=== PATIENT | female | born 1955 | race Caucasian/White ===

== ENCOUNTER 2016-11-09 12:55 | Emergency (ER) | payer MEDICARE, OTHER ==
[~2016-11-09 12:55] MED LIST: BIOT10TA PO; CETI5SOL PO; CLON1 PO; CRANCAP10 PO; LEFL20 PO; PREM0.45 PO; PRIN5TAB PO; PRIS50TA PO; SYNT88TA PO; VITA-13 PO; VITA500T49 PO
[2016-11-09 13:02] VITALS: BP 137/76; PULSE 84; RESP 16; TEMP 97.7; O2SAT 98
[2016-11-09] MEDS ORDERED: CRANCAP2 PO (13:05)
[2016-11-09] MEDS ORDERED: LISI10TA3 PO (13:05)
[2016-11-09] MEDS ORDERED: ALPR1TAB3 PO (13:05)
[2016-11-09] MEDS ORDERED: LEVO88TA2 PO (13:05)
[2016-11-09] MEDS ORDERED: CETI10 PO (13:05)
[2016-11-09] MEDS ORDERED: LEFL1TAB3 PO (13:05)
[2016-11-09] MEDS ORDERED: VORT1TAB2 PO (13:05)
[2016-11-09] MEDS ORDERED: SODIUM CHLOR 0.9% 1000 ML INJ 1,000 ML IV SCH (13:30)
[2016-11-09] MEDS ORDERED: METO25TA3 PO (13:30)
--- NOTE | 2016-11-09 13:30 | PD ---
HPI Chief Complaint: Syncope/Near-Syncope Time Seen by Provider: 13:00 Travel History International Travel<30 days: No Contact w/Intl Traveler<30days: No Traveled to known affect area: No History of Present Illness HPI 61 year-old woman presents to the emergency department complaining of feeling generally weak for the past couple weeks, as well as feeling episodes of fainting lightheadedness. She states she had one episode yesterday while she was shopping in flexion sit down. She had a second episode today while cutting her boyfriend's hair. She's had similar episodes in the past. She has a pacemaker for bradycardia. She states last week she had a pacer check she was told that she was having episodes of rapid heart rate up into the 200s. She did feel like her heart rate was elevated during these episodes. No shortness of breath. No chest pain. Review systems is positive for some loose stools recently. History Past Medical History Narrative Medical Hypertension Bradycardia, status post pacer, [employer] scientific Anxiety/depression mitral valve prolapse history of Kit's thyroiditis History of Elicia-Stover virus in the Menopausal: Yes : 2 Para: 2 Social History Alcohol Use: No Tobacco Use: No Allergies-Medications (Allergen,Severity, Reaction): Coded Allergies: Cymbalta (Verified Adverse Reaction, Severe, insomnia/celina, 11/09/16) Reported Meds & Prescriptions Reported Meds & Active Scripts Active Metoprolol Tartrate 25 Mg Tab 25 Mg PO BID Reported Lisinopril 10 Mg Tab 10 Mg PO DAILY Leflunomide 20 Mg Tab 20 Mg PO DAILY Cetirizine (Cetirizine HCl) 10 Mg Tab 10 Mg PO DAILY Cranberry Urinary Comfort (Vitamins C & E) 1 Cap 1 Cap PO DAILY Alprazolam 1 Mg Tab 1 Mg PO Q6H PRN Trintellix (Vortioxetine) 10 Mg Tab 10 Mg PO DAILY Levothyroxine (Levothyroxine Sodium) 88 Mcg Tab 88 Mcg PO DAILY Review of Systems Except as stated in HPI: all other systems reviewed are Neg Physical Exam Narrative GENERAL: Well-appearing 61 year-old woman, no acute distress. SKIN: Focused skin assessment warm/dry. HEAD: Atraumatic. Normocephalic. CARDIOVASCULAR: Regular rate and rhythm. No murmur appreciated. RESPIRATORY: No accessory muscle use. Clear to auscultation. Breath sounds equal bilaterally. GASTROINTESTINAL: Abdomen soft, non-tender, nondistended. Hepatic and splenic margins not palpable. MUSCULOSKELETAL: No obvious deformities. No clubbing. No cyanosis. No edema. NEUROLOGICAL: Awake and alert. No obvious cranial nerve deficits. Motor grossly within normal limits. Normal speech. PSYCHIATRIC: Little bit anxious. Somatically preoccupied. Data Data Last Documented VS Vital Signs Date Time Temp Pulse Resp B/P Pulse Ox O2 Delivery O2 Flow Rate FiO2 11/09/16 13:04 84 16 98 11/09/16 13:02 97.7 137/76 Orders Complete Blood Count With Diff (11/09/16 13:16) Comprehensive Metabolic Panel (11/09/16 13:16) Chest, Single Ap (11/09/16 ) Urinalysis - C+S If Indicated (11/09/16 13:16) Sodium Chlor 0.9% 1000 Ml Inj (Ns 1000 M (11/09/16 13:30) Iv Access Insert/Monitor (11/09/16 13:16) Labs Laboratory Tests Test 11/09/16 13:07 White Blood Count 3.7 TH/MM3 Red Blood Count 4.34 MIL/MM3 Hemoglobin 13.9 GM/DL Hematocrit 42.6 % Mean Corpuscular Volume 98.0 FL Mean Corpuscular Hemoglobin 32.0 PG Mean Corpuscular Hemoglobin 32.6 % Concent Red Cell Distribution Width 12.6 % Platelet Count 194 TH/MM3 Mean Platelet Volume 7.1 FL Neutrophils (%) (Auto) 28.2 % Lymphocytes (%) (Auto) 45.0 % Monocytes (%) (Auto) 11.1 % Eosinophils (%) (Auto) 14.6 % Basophils (%) (Auto) 1.1 % Neutrophils # (Auto) 1.0 TH/MM3 Lymphocytes # (Auto) 1.8 TH/MM3 Monocytes # (Auto) 0.4 TH/MM3 Eosinophils # (Auto) 0.5 TH/MM3 Basophils # (Auto) 0.0 TH/MM3 CBC Comment AUTO DIFF Sodium Level 139 MEQ/L Potassium Level 3.7 MEQ/L Chloride Level 103 MEQ/L Carbon Dioxide Level 26.8 MEQ/L Anion Gap 9 MEQ/L Blood Urea Nitrogen 14 MG/DL Creatinine 1.00 MG/DL Estimat Glomerular Filtration 57 ML/MIN Rate Random Glucose 137 MG/DL Calcium Level 9.1 MG/DL Total Bilirubin 0.6 MG/DL Aspartate Amino Transf 21 U/L (AST/SGOT) Alanine Aminotransferase 18 U/L (ALT/SGPT) Alkaline Phosphatase 66 U/L Total Protein 7.3 GM/DL Albumin 3.6 GM/DL [facility] Medical Decision Making Medical Screen Exam Complete: Yes Emergency Medical Condition: Yes Interpretation(s) LABS: CBC unremarkable. CMP unremarkable. Chest x-ray negative Differential Diagnosis Arrhythmia/SVT, dehydration, anemia, anxiety, weakness, other Narrative Course Medical decision making 61 year-old woman with intermittent episodes of lightheadedness and faint near syncopal feelings. She has some palpitations at a time. She has known episodes of SVT. I spoke with Dr. Patterson, and on her recent pacer interpretation she was having runs of SVT lasting 30 seconds or so. I think this is likely this was for symptoms. We'll check electrolytes, x-ray. These look okay, will start her on some low-dose metoprolol, stopped lisinopril. Diagnosis Primary Impression: SVT (supraventricular tachycardia) Additional Instructions: Take metoprolol as prescribed. Stop lisinopril. Follow-up with Dr. Patterson next week. Return to the emergency department for any new or worsening symptoms. Med/Other Pt SpecificInfo: Prescription(s) given Scripts Metoprolol Tartrate 25 Mg Tab25 Mg PO BID #60 TAB Ref 0 Prov:Tobi Edmondson MD 11/09/16 Disposition: 01 DISCHARGE HOME Condition: Stable Tobi Edmondson MD Nov 09, 2016 13:30
--- NOTE | 2016-11-09 13:41 | RADHPO ---
EXAM DATE/TIME: 11/09/2016 13:23 [facility] COMPARISON: CHEST SINGLE AP, October 01, 2014, 11:39. INDICATIONS : Short of breath MEDICAL HISTORY : None. SURGICAL HISTORY : Pacemaker. ENCOUNTER: Initial ACUITY: 1 day PAIN SCORE: 0/10 LOCATION: Bilateral chest FINDINGS: There is a stable 2-lead pacemaker in place. Lungs are hyperaerated but are otherwise clear. Cardiome dial contours are within normal limits. Bony thorax is intact. CONCLUSION: 1. No acute cardiopulmonary disease. Juno Rodas MD on November 09, 2016 at 13:38 Board Certified Radiologist. This report was verified electronically.
[2016-11-09 13:51] LABS: CHLORIDE 103 MEQ/L (98-107); POTASSIUM 3.7 MEQ/L (3.5-5.1); SODIUM (NA) 139 MEQ/L (136-145)
[2016-11-09 13:52] LABS: BASOPHIL % 1.1 % (0.0-2.0); EOSINOPHIL # 0.5 TH/MM3 (0-0.4); EOSINOPHIL % 14.6 % (0.0-4.0); HEMATOCRIT 42.6 % (35.0-46.0); LYMPHOCYTE # 1.8 TH/MM3 (1.0-4.8); MEAN CORPUSCULAR HGB CONC 32.6 % (32.0-36.0); MONO % 11.1 % (0.0-8.0); NEUT % 28.2 % (16.0-70.0); PLATELET COUNT 194 TH/MM3 (150-450); RED BLOOD COUNT 4.34 MIL/MM3 (4.00-5.30); RED CELL DISTRIBUTION WIDTH 12.6 % (11.6-17.2); WHITE BLOOD COUNT 3.7 TH/MM3 (4.0-11.0)
[2016-11-09 13:55] LABS: ANION GAP 9 MEQ/L (5-15); BICARBONATE 26.8 MEQ/L (21.0-32.0); BLOOD UREA NITROGEN 14 MG/DL (7-18)
[2016-11-09 13:56] LABS: HEMO FLAGS AUTO DIFF
[2016-11-09 13:58] LABS: ALT (GPT) 18 U/L (10-53); AST (GOT) 21 U/L (15-37); GLOMERULAR FILTRATION RATE 57 ML/MIN (>89)
[2016-11-09 14:00] LABS: TOTAL BILIRUBIN ADULT 0.6 MG/DL (0.2-1.0)
[2016-11-09 14:01] LABS: ALKALINE PHOSPHATASE 66 U/L (45-117)
[2016-11-09 14:23] VITALS: BP 114/68
[2016-11-09 14:35] LABS: SCAN/DIFF AUTO DIFF CONFIRMED
--- NOTE | 2016-11-11 10:12 | EKG ---
Date Performed: 11/09/2016 Time Performed: 12:53:34 PTAGE: 61 years EKG: Sinus rhythm rSr'(V1) - probable normal variant Generalized low QRS voltages Borderline ECG PREVIOUS TRACING : 12/26/2015 13.45 DOCTOR: Tobi Hwang Interpretating Date/Time 11/11/2016 09:55:10
== END 2016-11-09 14:34 | disposition home or self-care (01) ==
LOC: PHED 12:55
DX: I47.1 Supraventricular tachycardia (principal); R42 Dizziness and giddiness; I10 Essential (primary) hypertension
CPT/HCPCS: 71010; 80053; 85025; 93005; 96360; 99284; J7030

== ENCOUNTER 2016-11-15 14:30 | Emergency (ER) | payer MEDICARE, OTHER ==
[~2016-11-15] VITALS: Ht 170.2 cm; Wt 59.0 kg
[~2016-11-15 14:30] MED LIST changes: +ALPR1TAB3 PO; -BIOT10TA PO; +CETI10 PO; -CETI5SOL PO; -CLON1 PO; -CRANCAP10 PO; +CRANCAP2 PO; +LEFL1TAB3 PO; -LEFL20 PO; +LEVO88TA2 PO; +LISI10TA3 PO; +METO25TA3 PO; -PREM0.45 PO; -PRIN5TAB PO; -PRIS50TA PO; -SYNT88TA PO; -VITA-13 PO; -VITA500T49 PO; +VORT1TAB2 PO
[2016-11-15 15:00] VITALS: BP 115/68; PULSE 64; RESP 18; O2SAT 95
[2016-11-15 15:04] VITALS: BP 115/68; PULSE 59; RESP 18; TEMP 98.5; O2SAT 97
[2016-11-15 15:09] VITALS: BP 115/68; PULSE 60; RESP 18; TEMP 98.5; O2SAT 97
[2016-11-15] MEDS ORDERED: SODIUM CHLORIDE 0.9% FLUSH 10 ML FLUSH IVF PRN (16:00)
[2016-11-15 16:24] LABS: AUTOMATED NEUTROPHIL # 5.1 TH/MM3 (1.8-7.7); BASOPHIL % 0.6 % (0.0-2.0); EOSINOPHIL # 0.3 TH/MM3 (0-0.4); EOSINOPHIL % 4.1 % (0.0-4.0); HEMATOCRIT 40.9 % (35.0-46.0); LYMPH % 15.3 % (9.0-44.0); LYMPHOCYTE # 1.1 TH/MM3 (1.0-4.8); MEAN CELL VOLUME 98.8 FL (80.0-100.0); MEAN CORPUSCULAR HEMOGLOBIN 32.6 PG (27.0-34.0); MONO % 6.6 % (0.0-8.0); NEUT % 73.4 % (16.0-70.0); PLATELET COUNT 191 TH/MM3 (150-450); RED BLOOD COUNT 4.14 MIL/MM3 (4.00-5.30); RED CELL DISTRIBUTION WIDTH 12.5 % (11.6-17.2); WHITE BLOOD COUNT 6.9 TH/MM3 (4.0-11.0)
[2016-11-15 16:47] VITALS: BP 124/69; PULSE 60; RESP 18; O2SAT 96
[2016-11-15 16:47] LABS: HEMO FLAGS AUTO DIFF
[2016-11-15 16:50] LABS: ALT (GPT) 20 U/L (10-53); ANION GAP 8 MEQ/L (5-15); AST (GOT) 27 U/L (15-37); BICARBONATE 26.9 MEQ/L (21.0-32.0); BLOOD UREA NITROGEN 7 MG/DL (7-18); CHLORIDE 109 MEQ/L (98-107); GLOMERULAR FILTRATION RATE 66 ML/MIN (>89); MAGNESIUM 1.8 MG/DL (1.5-2.5); POTASSIUM 3.9 MEQ/L (3.5-5.1); SODIUM (NA) 144 MEQ/L (136-145)
[2016-11-15 16:56] LABS: ALKALINE PHOSPHATASE 53 U/L (45-117); TOTAL BILIRUBIN ADULT 0.2 MG/DL (0.2-1.0)
[2016-11-15 17:06] LABS: CREATINE KINASE 61 U/L (26-192)
--- NOTE | 2016-11-15 17:09 | PD ---
HPI Chief Complaint: Syncope/Near-Syncope Time Seen by Provider: 15:04 Travel History International Travel<30 days: No Contact w/Intl Traveler<30days: No Traveled to known affect area: No History of Present Illness HPI Patient is a 61-year-old female presents emergency department for evaluation after syncopal episode. Patient states that she was shopping at [employer] when suddenly she felt very dizzy and extension and she was on the ground. She is coming by her states the patient does have a history of heavy drinking in the past and wonders if her electrolytes are imbalanced. The patient does have a history of pacemaker placed for an irregular heartbeat, she has had some SVT episodes measured by the pacemaker since in place. Not a defibrillator. She states she is followed by Dr. Patterson and has an appointment tomorrow. She denies any headache abdominal pain neck pain back pain or extremity pain. Patient denies any chest pain shortness of breath abdominal pain nausea vomiting or diarrhea before during or after event. On arrival the patient states she feels well and has no complaints and is no longer feeling like she is dizzy her going to pass out. EMS did report that the patient did have low blood pressure on scene a normal blood sugar. PFSH Past Medical History Arthritis: Yes Blood Disorders: No Anxiety: Yes Depression: Yes Heart Rhythm Problems: Yes (Mitral valve prolapse) Cancer: No High Cholesterol: No Chest Pain: No Congestive Heart Failure: No Diabetes: No Diminished Hearing: No Endocrine: Yes Gastrointestinal Disorders: No Genitourinary: Yes (Frequent UTI's) Hypertension: No Immune Disorder: Yes (Kit's, Elicia-barre) Implanted Vascular Access Dvce: Yes Immunizations Current: No Thyroid Disease: Yes (Kit's) ?: Not Menopausal: Yes : 2 Para: 2 Past Surgical History Appendectomy: Yes (2000) Body Medical Devices: Pacemaker Cardiac Surgery: Yes (Pacemaker) Cholecystectomy: Yes (2002) Genitourinary Surgery: Yes (Bladder tuck) Hysterectomy: Yes (Partial) Pacemaker: Yes Tonsillectomy: Yes (and adenoids) Other Surgery: Yes (Breast aug) Social History Alcohol Use: No Tobacco Use: No Substance Use: No Allergies-Medications (Allergen,Severity, Reaction): Coded Allergies: Cymbalta (Verified Adverse Reaction, Severe, insomnia/celina, 11/15/16) Reported Meds & Prescriptions Reported Meds & Active Scripts Active Metoprolol Tartrate 25 Mg Tab 25 Mg PO BID Reported Lisinopril 10 Mg Tab 10 Mg PO DAILY Leflunomide 20 Mg Tab 20 Mg PO DAILY Cetirizine (Cetirizine HCl) 10 Mg Tab 10 Mg PO DAILY Cranberry Urinary Comfort (Vitamins C & E) 1 Cap 1 Cap PO DAILY Alprazolam 1 Mg Tab 1 Mg PO Q6H PRN Trintellix (Vortioxetine) 10 Mg Tab 10 Mg PO DAILY Levothyroxine (Levothyroxine Sodium) 88 Mcg Tab 88 Mcg PO DAILY Review of Systems Except as stated in HPI: all other systems reviewed are Neg Physical Exam Narrative GENERAL: Well-developed well-nourished, quite pleasant female in no apparent distress. SKIN: Focused skin assessment warm/dry. HEAD: Atraumatic. Normocephalic. EYES: Pupils equal and round. No scleral icterus. No injection or drainage. ENT: No nasal bleeding or discharge. Mucous membranes pink and moist. NECK: Trachea midline. No JVD. CARDIOVASCULAR: Regular rate and rhythm. No murmur appreciated. 2+ bilateral equal pulses in all 4 extremity's. RESPIRATORY: No accessory muscle use. Clear to auscultation. Breath sounds equal bilaterally. GASTROINTESTINAL: Abdomen soft, non-tender, nondistended. Hepatic and splenic margins not palpable. MUSCULOSKELETAL: No obvious deformities. No clubbing. No cyanosis. No edema. NEUROLOGICAL: Awake and alert. No obvious cranial nerve deficits. Motor grossly within normal limits. Normal speech. PSYCHIATRIC: Appropriate mood and affect; insight and judgment normal. Data Data Last Documented VS Vital Signs Date Time Temp Pulse Resp B/P Pulse Ox O2 Delivery O2 Flow Rate FiO2 11/15/16 18:07 60 18 113/68 98 11/15/16 16:47 Room Air 11/15/16 15:09 98.5 Orders Electrocardiogram (11/15/16 15:51) Ckmb (Isoenzyme) Profile (11/15/16 15:51) Complete Blood Count With Diff (11/15/16 15:51) Comprehensive Metabolic Panel (11/15/16 15:51) Magnesium (Mg) (11/15/16 15:51) Prothrombin Time / Inr (Pt) (11/15/16 15:51) Act Partial Throm Time (Ptt) (11/15/16 15:51) Troponin I (11/15/16 15:51) Chest, Single Ap (11/15/16 15:51) Ecg Monitoring (11/15/16 15:51) Iv Access Insert/Monitor (11/15/16 15:51) Oximetry (11/15/16 15:51) Oxygen Administration (11/15/16 15:51) Sodium Chloride 0.9% Flush (Ns Flush) (11/15/16 16:00) Labs Laboratory Tests Test 11/15/16 15:55 White Blood Count 6.9 TH/MM3 Red Blood Count 4.14 MIL/MM3 Hemoglobin 13.5 GM/DL Hematocrit 40.9 % Mean Corpuscular Volume 98.8 FL Mean Corpuscular Hemoglobin 32.6 PG Mean Corpuscular Hemoglobin 33.0 % Concent Red Cell Distribution Width 12.5 % Platelet Count 191 TH/MM3 Mean Platelet Volume 7.5 FL Neutrophils (%) (Auto) 73.4 % Lymphocytes (%) (Auto) 15.3 % Monocytes (%) (Auto) 6.6 % Eosinophils (%) (Auto) 4.1 % Basophils (%) (Auto) 0.6 % Neutrophils # (Auto) 5.1 TH/MM3 Lymphocytes # (Auto) 1.1 TH/MM3 Monocytes # (Auto) 0.5 TH/MM3 Eosinophils # (Auto) 0.3 TH/MM3 Basophils # (Auto) 0.0 TH/MM3 CBC Comment AUTO DIFF Differential Comment AUTO DIFF CONFIRMED Prothrombin Time 11.9 SEC Prothromb Time International 1.1 RATIO Ratio Activated Partial 20.8 SEC Thromboplast Time Sodium Level 144 MEQ/L Potassium Level 3.9 MEQ/L Chloride Level 109 MEQ/L Carbon Dioxide Level 26.9 MEQ/L Anion Gap 8 MEQ/L Blood Urea Nitrogen 7 MG/DL Creatinine 0.88 MG/DL Estimat Glomerular Filtration 66 ML/MIN Rate Random Glucose 70 MG/DL Calcium Level 8.5 MG/DL Magnesium Level 1.8 MG/DL Total Bilirubin 0.2 MG/DL Aspartate Amino Transf 27 U/L (AST/SGOT) Alanine Aminotransferase 20 U/L (ALT/SGPT) Alkaline Phosphatase 53 U/L Total Creatine Kinase 61 U/L Troponin I LESS THAN 0.02 NG/ML Total Protein 6.9 GM/DL Albumin 3.4 GM/DL MDM Medical Decision Making Medical Screen Exam Complete: Yes Emergency Medical Condition: Yes Interpretation(s) EKG shows electronic atrial pacemaker, no concerning ST segment changes, normal axis normal R-wave progression. Low QRS voltage throughout all leads nonspecific finding. This is nonspecific EKG. Differential Diagnosis Syncope, cardiogenic syncope, arrhythmia, ACS seems unlikely, SC,. Narrative Course Head injury is excluded by Bulgarian CT head rules, neck is excluded by Nexus criteria. Patient's EKG is reassuring. Patient's pacemaker was interrogated and while the patient has had some tachyarrhythmias in the past she's not had any in the immediate past and certainly none while the event happened today. Troponin negative, chest x-ray negative, electrolytes within normal limits. Discussed with the patient could consider observation status but she would rather follow up with her manager payer tomorrow. Sincerely has an appointment at think this is a reasonable course of action. She stable for discharge at this time. Discussed return to ED criteria. Diagnosis Primary Impression: Syncope Qualified Code: R55 - Syncope, unspecified syncope type Additional Instructions: Follow-up with your physicians as scheduled tomorrow. Disposition: 01 DISCHARGE HOME Condition: Stable Cipriano Garza MD Nov 15, 2016 17:09
[2016-11-15 17:11] LABS: APTT (PATIENT) 20.8 SEC (24.3-30.1); INTERNATIONAL NORMALIZED RATIO 1.1 RATIO; PROTHROMBIN TIME - PATIENT 11.9 SEC (9.8-11.6)
--- NOTE | 2016-11-15 17:17 | RADRPT ---
EXAM DATE/TIME: 11/15/2016 16:15 [facility] COMPARISON: CHEST SINGLE AP, November 09, 2016, 13:23. INDICATIONS : [facility] MED[facility] HISTORY : high blood pressure SURGICAL HISTORY : Pacemaker. ENCOUNTER: Initial ACUITY: 1 day PAIN SCORE: 0/10 LOCATION: Bilateral chest FINDINGS: Dual-lead pacemaker in stable position. Lungs are clear. Cardiomediastinal contours are within normal limits. Remainder of exam is unchanged. CONCLUSION: 1. No acute cardiopulmonary disease. Juno Rodas MD on November 15, 2016 at 17:13 Board Certified Radiologist. This report was verified electronically.
[2016-11-15 18:00] LABS: SCAN/DIFF AUTO DIFF CONFIRMED
[2016-11-15 18:07] VITALS: BP 113/68
--- NOTE | 2016-11-16 22:48 | EKG ---
Date Performed: 11/15/2016 Time Performed: 15:04:37 PTAGE: 61 years EKG: ELECTRONIC ATRIAL PACEMAKER LOW QRS VOLTAGE ABNORMAL ECG PREVIOUS TRACING : 11/09/2016 12.53 DOCTOR: Jose Manuel Naranjo Interpretating Date/Time 11/16/2016 22:46:05
== END 2016-11-15 18:10 | disposition home or self-care (01) ==
LOC: NEPC 14:30
DX: R55 Syncope and collapse (principal); I34.1 Nonrheumatic mitral (valve) prolapse; E06.3 Autoimmune thyroiditis; Z95.0 Presence of cardiac pacemaker; Z87.440 Personal history of urinary (tract) infections
CPT/HCPCS: 71010; 80053; 82550; 83735; 84484; 85025; 85610; 85730; 93005; 99285

== ENCOUNTER 2017-05-14 17:19 | Emergency (ER) | payer MEDICARE, OTHER ==
[2017-05-14 17:26] VITALS: BP 146/82; PULSE 69; RESP 20; TEMP 98.5; O2SAT 95
[2017-05-14] MEDS ORDERED: SODIUM CHLORIDE 0.9% FLUSH 10 ML FLUSH IV FLUSH PRN (17:45)
[2017-05-14] MEDS ORDERED: TETANUS/DIPHTHERIA TOXOID ADULT 0.5 ML VIAL IM ONE (17:45)
[2017-05-14] MEDS ORDERED: KETOROLAC TROMETHAMINE 30 MG/ML (IVP) VIAL IV PUSH ONE (17:45)
--- NOTE | 2017-05-14 17:49 | PD ---
HPI Chief Complaint: Fall Time Seen by Provider: 17:38 Travel History International Travel<30 days: No Contact w/Intl Traveler<30days: No Traveled to known affect area: No History of Present Illness HPI 61-year-old female here with her significant other for evaluation of right arm and forearm pain after a mechanical fall in the bathroom yesterday while intoxicated. The patient admits to drinking wine today as well. She tells me she does not drink daily, however her significant other tells me that she does. She is unsure if she hit her head. She denies loss of consciousness. She denies neck or back pain. She does have history of sciatica with shooting pain down her left leg which is not new. She denies pain anywhere else. Pain is moderate to severe, constant, worse with palpation and movements. She has not taken anything for the pain. PFSH Past Medical History Arthritis: Yes Blood Disorders: No Anxiety: Yes Depression: Yes Heart Rhythm Problems: Yes (Mitral valve prolapse) Cancer: No High Cholesterol: No Chest Pain: No Congestive Heart Failure: No Diabetes: No Diminished Hearing: No Endocrine: Yes Gastrointestinal Disorders: No Genitourinary: Yes (Frequent UTI's) Hypertension: No Immune Disorder: Yes (Kit's, Elicia-barre) Implanted Vascular Access Dvce: Yes Immunizations Current: No Thyroid Disease: Yes (Kit's) Menopausal: Yes : 2 Para: 2 Past Surgical History Appendectomy: Yes (2000) Body Medical Devices: Pacemaker Cardiac Surgery: Yes (Pacemaker) Cholecystectomy: Yes (2002) Genitourinary Surgery: Yes (Bladder tuck) Hysterectomy: Yes (PARTIAL) Pacemaker: Yes Tonsillectomy: Yes (and adenoids) Other Surgery: Yes (Breast aug.) Social History Alcohol Use: No Tobacco Use: No Substance Use: No Allergies-Medications (Allergen,Severity, Reaction): Coded Allergies: duloxetine (Verified Adverse Reaction, Severe, insomnia/celina, 05/14/17) Reported Meds & Prescriptions Reported Meds & Active Scripts Active Metoprolol Tartrate 25 Mg Tab 25 Mg PO BID Reported Lisinopril 10 Mg Tab 10 Mg PO DAILY Leflunomide 20 Mg Tab 20 Mg PO DAILY Cetirizine (Cetirizine HCl) 10 Mg Tab 10 Mg PO DAILY Cranberry Urinary Comfort (Vitamins C & E) 1 Cap 1 Cap PO DAILY Alprazolam 1 Mg Tab 1 Mg PO Q6H PRN Trintellix (Vortioxetine) 10 Mg Tab 10 Mg PO DAILY Levothyroxine (Levothyroxine Sodium) 88 Mcg Tab 88 Mcg PO DAILY Review of Systems Except as stated in HPI: all other systems reviewed are Neg Physical Exam Narrative GENERAL: Well-developed, well-nourished, awake, alert, no apparent distress. SKIN: Focused skin assessment warm/dry. Right proximal/posterior/lateral forearm with significant ecchymosis and moderate edema with small overlying/ superficial abrasion. There is also ecchymosis to the right lateral arm. Left distal forearm with some mild ecchymosis as well. HEAD: Atraumatic. Normocephalic. EYES: Pupils equal and round. No scleral icterus. No injection or drainage. ENT: No nasal bleeding or discharge. Mucous membranes pink and moist. NECK: Trachea midline. No JVD. No midline cervical spine step-off or tenderness. CARDIOVASCULAR: Regular rate and rhythm. Bilateral distal radial pulses are brisk and equal. RESPIRATORY: No accessory muscle use. Clear to auscultation. Breath sounds equal bilaterally. GASTROINTESTINAL: Abdomen soft, non-tender, nondistended. MUSCULOSKELETAL: Skin exam as above. Normal range of motion in all joints in the right upper extremity as well as all joints in general. Aside from swelling to the proximal right/lateral/posterior forearm, there is no other areas of edema. No obvious bony deformities. NEUROLOGICAL: Awake and alert. No obvious cranial nerve deficits. Motor grossly within normal limits. Normal speech. PSYCHIATRIC: Appropriate mood and affect; insight and judgment normal. Data Data Last Documented VS Vital Signs Date Time Temp Pulse Resp B/P (MAP) Pulse Ox O2 Delivery O2 Flow Rate FiO2 05/14/17 19:02 66 18 123/69 (87) 96 Room Air 05/14/17 17:26 98.5 Orders Orders Complete Blood Count With Diff (05/14/17 17:43) Comprehensive Metabolic Panel (05/14/17:43) Prothrombin Time / Inr (Pt) (05/14/17 17:43) Act Partial Throm Time (Ptt) (05/14/17 17:43) Iv Access Insert/Monitor (05/14/17 17:43) Ecg Monitoring (05/14/17:43) Oximetry (12/12/17 17:43) Sodium Chloride 0.9% Flush (Ns Flush) (05/14/17 17:45) Ketorolac Inj (Toradol Inj) (05/14/17 17:45) Tetanus/Diphtheria Tox Adult (Tetanus/Di (05/14/17 17:45) Ct Brain W/O Iv Contrast(Rout) (05/14/17 ) Ct Cerv Spine W/O Contrast (05/14/17 ) Alcohol (Ethanol) (05/14/17 17:43) Humerus (Min 2vws) (05/14/17 ) Forearm (2vws) (05/14/17 ) Labs Laboratory Tests Test 05/14/17 18:30 White Blood Count 4.6 TH/MM3 Red Blood Count 3.66 MIL/MM3 Hemoglobin 12.3 GM/DL Hematocrit 37.2 % Mean Corpuscular Volume 101.7 FL Mean Corpuscular Hemoglobin 33.5 PG Mean Corpuscular Hemoglobin Concent 33.0 % Red Cell Distribution Width 14.4 % Platelet Count 185 TH/MM3 Mean Platelet Volume 6.1 FL Neutrophils (%) (Auto) 53.2 % Lymphocytes (%) (Auto) 29.1 % Monocytes (%) (Auto) 13.3 % Eosinophils (%) (Auto) 3.3 % Basophils (%) (Auto) 1.1 % Neutrophils # (Auto) 2.4 TH/MM3 Lymphocytes # (Auto) 1.3 TH/MM3 Monocytes # (Auto) 0.6 TH/MM3 Eosinophils # (Auto) 0.2 TH/MM3 Basophils # (Auto) 0.1 TH/MM3 CBC Comment DIFF FINAL Differential Comment Prothrombin Time 9.9 SEC Prothromb Time International Ratio 1.0 RATIO Activated Partial Thromboplast Time 25.0 SEC Blood Urea Nitrogen 11 MG/DL Creatinine 0.71 MG/DL Random Glucose 80 MG/DL Total Protein 6.6 GM/DL Albumin 3.3 GM/DL Calcium Level 8.1 MG/DL Alkaline Phosphatase 66 U/L Aspartate Amino Transf (AST/SGOT) 36 U/L Alanine Aminotransferase (ALT/SGPT) 22 U/L Total Bilirubin 0.5 MG/DL Sodium Level 134 MEQ/L Potassium Level 4.2 MEQ/L Chloride Level 97 MEQ/L Carbon Dioxide Level 24.7 MEQ/L Anion Gap 12 MEQ/L Estimat Glomerular Filtration Rate 84 ML/MIN Ethyl Alcohol Level 251 MG/DL [facility] Medical Decision Making Medical Screen Exam Complete: Yes Emergency Medical Condition: Yes Medical Record Reviewed: Yes Differential Diagnosis Right forearm contusion versus fracture, alcohol intoxication, intracranial trauma, cervical spine injury Narrative Course Vital signs reviewed. CBC is unremarkable. CMP is essentially unremarkable. Alcohol level is 251. CT head: Normal exam. CT cervical spine: No acute findings. Moderate degenerative disc disease. Right forearm x-ray: No forearm fracture. Right humerus x-ray: Probable nondisplaced hairline fracture through the distal lateral humerus above the elbow joint in the epicondylar region. Patient and the patient's significant other were made aware of all findings. She does have some tenderness in the area of the probable fracture on the distal humerus. She will be placed in a posterior arm splint and advised to follow-up with an orthopedist this week. The patient admits to feeling depressed, however she adamantly denies suicidal ideation. Patient's significant other will be able to take her home. She was advised to follow-up with her primary care physician this week as well as her psychiatrist this week. She was informed on when to return to the emergency department. She verbalizes understanding and agreement with plan. Diagnosis Primary Impression: Closed right humeral fracture Qualified Codes: S42.454A - Nondisplaced fracture of lateral condyle of right humerus, initial encounter for closed fracture Additional Impressions: Contusion of right forearm Qualified Codes: S50.11XA - Contusion of right forearm, initial encounter Alcohol intoxication Qualified Codes: F10.920 - Alcohol use, unspecified with intoxication, uncomplicated Referrals: Toño Miranda MD 3 days Orthopedist Primary Care Physician 3 days Additional Instructions: Follow-up with your primary care physician this week. Follow-up with an orthopedist this week. Take Tylenol/ibuprofen for pain. Return to the emergency department for worsening symptoms or any other concerns. Disposition: 01 DISCHARGE HOME Condition: Stable Ab Shabazz MD May 14, 2017 17:49
[2017-05-14 18:30] VITALS: RESP 18; O2SAT 95
[2017-05-14 18:34] LABS: AUTOMATED NEUTROPHIL # 2.4 TH/MM3 (1.8-7.7); BASOPHIL # 0.1 TH/MM3 (0-0.2); BASOPHIL % 1.1 % (0.0-2.0); EOSINOPHIL # 0.2 TH/MM3 (0-0.4); EOSINOPHIL % 3.3 % (0.0-4.0); HEMATOCRIT 37.2 % (35.0-46.0); HEMO FLAGS DIFF FINAL; LYMPH % 29.1 % (9.0-44.0); LYMPHOCYTE # 1.3 TH/MM3 (1.0-4.8); MEAN CELL VOLUME 101.7 FL (80.0-100.0); MEAN CORPUSCULAR HEMOGLOBIN 33.5 PG (27.0-34.0); MONO % 13.3 % (0.0-8.0); NEUT % 53.2 % (16.0-70.0); PLATELET COUNT 185 TH/MM3 (150-450); RED BLOOD COUNT 3.66 MIL/MM3 (4.00-5.30); RED CELL DISTRIBUTION WIDTH 14.4 % (11.6-17.2); WHITE BLOOD COUNT 4.6 TH/MM3 (4.0-11.0)
--- NOTE | 2017-05-14 18:35 | RADRPT ---
EXAM DATE/TIME: 05/14/2017 17:48 [facility] COMPARISON: No previous studies available for comparison. INDICATIONS : Right distal humerus pain after falling in the bathroom yesterday. MEDICAL HISTORY : Hypertension. SURGICAL HISTORY : None. ENCOUNTER: Initial ACUITY: 2 days PAIN SCORE: 10/10 LOCATION: Right distal humerus. FINDINGS: There is a probable nondisplaced hairline fracture through lateral aspect of the distal humerus above the radiocapitellar joint. No dislocation at the elbow or shoulder. No other fractures are seen. CONCLUSION: 1. Probable nondisplaced hairline fracture through distal lateral humerus above the elbow joint in th e epicondylar region. Cezar Wall MD on May 14, 2017 at 18:33 Board Certified Radiologist. This report was verified electronically.
--- NOTE | 2017-05-14 18:36 | RADRPT ---
EXAM DATE/TIME: 05/14/2017 17:48 [facility] COMPARISON: No previous studies available for comparison. INDICATIONS : Right proximal forearm pain after falling in the bathroom yesterday. MEDICAL HISTORY : Hypertension. SURGICAL HISTORY : None. ENCOUNTER: Initial ACUITY: 2 days PAIN SCORE: 10/10 LOCATION: Right proximal forearm. FINDINGS: No acute fracture identified within the radius and ulna. Possible hairline fracture in the distal hum erus seen on the humerus film is not clearly appreciated on this exam. CONCLUSION: 1. No forearm fracture identified. Cezar Wall MD on May 14, 2017 at 18:34 Board Certified Radiologist. This report was verified electronically.
--- NOTE | 2017-05-14 18:43 | RADRPT ---
EXAM DATE/TIME: 05/14/2017 18:09 [facility] COMPARISON: No previous studies available for comparison. INDICATIONS : Fell last night. RADIATION DOSE: 43.97 CTDIvol (mGy) MEDICAL HISTORY : Cardiovascular disease. Kit's. SURGICAL HISTORY : Pacemaker. Appendectomy.Cholecystectomy.Hysterectomy. ENCOUNTER: Initial ACUITY: 2 days PAIN SCALE: 8/10 LOCATION: cranial TECHNIQUE: Multiple contiguous axial images were obtained of the head. Using automated exposure control and adj ustment of the mA and/or kV according to patient size, radiation dose was kept as low as reasonably a chievable to obtain optimal diagnostic quality images. DICOM format image data is available electro nically for review and comparison. FINDINGS: CEREBRUM: The ventricles are normal for age. No evidence of midline shift, mass lesion, hemorrhage or acute in farction. No extra-axial fluid collections are seen. POSTERIOR FOSSA: The cerebellum and brainstem are intact. The 4th ventricle is midline. The cerebellopontine angle i s unremarkable. EXTRACRANIAL: The visualized portion of the orbits is intact. SKULL: The calvaria is intact. No evidence of skull fracture. CONCLUSION: Normal examination for a patient of this age. No significant change has occurred. Cezar Wall MD on May 14, 2017 at 18:40 Board Certified Radiologist. This report was verified electronically.
--- NOTE | 2017-05-14 18:46 | RADRPT ---
EXAM DATE/TIME: 05/14/2017 18:09 [facility] COMPARISON: No previous studies available for comparison. INDICATIONS : Fell last night. RADIATION DOSE: 26.41 CTDIvol (mGy) MEDICAL HISTORY : Cardiovascular disease. Kit's. SURGICAL HISTORY : Pacemaker. Appendectomy.Cholecystectomy.Hysterectomy. ENCOUNTER: Initial ACUITY: 2 days PAIN SCALE: 8/10 LOCATION: neck TECHNIQUE: Volumetric scanning of the cervical spine was performed. Multiplanar reconstructions in the sagittal, coronal and oblique axial planes were performed. Using automated exposure control and adjustment o f the mA and/or kV according to patient size, radiation dose was kept as low as reasonably achievable to obtain optimal diagnostic quality images. DICOM format image data is available electronically f or review and comparison. FINDINGS: There is no acute fracture or subluxation. No prevertebral soft tissue swelling. There is moderate de generative disc disease AP canal stenosis between C4 and C7, mild. CONCLUSION: 1. No acute findings. Moderate degenerative disc disease. Cezar Wall MD on May 14, 2017 at 18:41 Board Certified Radiologist. This report was verified electronically.
[2017-05-14 18:58] LABS: CHLORIDE 97 MEQ/L (98-107); POTASSIUM 4.2 MEQ/L (3.5-5.1); SODIUM (NA) 134 MEQ/L (136-145)
[2017-05-14 19:02] VITALS: BP 123/69; PULSE 66; RESP 18; O2SAT 96
[2017-05-14 19:02] LABS: ANION GAP 12 MEQ/L (5-15); BICARBONATE 24.7 MEQ/L (21.0-32.0); BLOOD UREA NITROGEN 11 MG/DL (7-18)
[2017-05-14 19:04] LABS: PROTHROMBIN TIME - PATIENT 9.9 SEC (9.8-11.6)
[2017-05-14 19:05] LABS: ALT (GPT) 22 U/L (10-53); AST (GOT) 36 U/L (15-37); GLOMERULAR FILTRATION RATE 84 ML/MIN (>89)
[2017-05-14 19:07] LABS: TOTAL BILIRUBIN ADULT 0.5 MG/DL (0.2-1.0)
[2017-05-14 19:08] LABS: ALKALINE PHOSPHATASE 66 U/L (45-117)
[2017-05-14 19:23] LABS: ALCOHOL 251 MG/DL (0-5)
[2017-05-14 19:37] VITALS: BP 144/85
== END 2017-05-14 20:09 | disposition home or self-care (01) ==
LOC: PHED 17:19
DX: S42.454A Nondisplaced fracture of lateral condyle of right humerus, initial encounter for closed fracture (principal); S50.11XA Contusion of right forearm, initial encounter; F10.920 Alcohol use, unspecified with intoxication, uncomplicated; W19.XXXA Unspecified fall, initial encounter; Y90.8 Blood alcohol level of 240 mg/100 ml or more; Z23 Encounter for immunization; Z79.899 Other long term (current) drug therapy
CPT/HCPCS: 29105; 70450; 72125; 73060; 73090; 80053; 80307; 85025; 85610; 85730; 90471; 90714; 96374; 99285; J1885

== ENCOUNTER 2017-05-31 22:20 | Inpatient (IN) | payer MEDICARE, OTHER ==
[~2017-05-31] VITALS: Ht 177.8 cm; Wt 73.1 kg
[2017-05-31 22:24] VITALS: BP 160/85; PULSE 61; RESP 15; TEMP 98.5; O2SAT 95
[2017-05-31] MEDS ORDERED: PREM0.45 PO (22:45)
--- NOTE | 2017-05-31 23:07 | PD ---
HPI Chief Complaint: Suicide Ideation/Attempt Time Seen by Provider: 22:31 Travel History International Travel<30 days: No Contact w/Intl Traveler<30days: No Traveled to known affect area: No History of Present Illness HPI 61-year-old white female presents to emergency department uneventfully basis for psychological evaluation. Patient is accompanied by family members. According to the patient she's been depressed for years. She is followed by Dr. Cervantes. She recently broke up with her boyfriend this past week. This has exacerbated her depression. She has been drinking alcohol. She has contemplated suicide. Patient admits to suicidal ideation. She denies any homicidal ideation. She denies any toxic ingestions. Patient states that she would like to be inpatient and get therapy. PFSH Past Medical History Narrative Medical Anxiety, depression, arthritis, arrhythmia, pacemaker, Kit, Elicia bar Arthritis: Yes Blood Disorders: No Anxiety: Yes Depression: Yes Heart Rhythm Problems: Yes (Mitral valve prolapse) Cancer: No Cardiovascular Problems: Yes High Cholesterol: No Chest Pain: No Congestive Heart Failure: No Diabetes: No Diminished Hearing: No Endocrine: Yes Gastrointestinal Disorders: No Genitourinary: Yes (Frequent UTI's) Hypertension: No Immune Disorder: Yes (Kit's, Elicia-barre) Implanted Vascular Access Dvce: Yes Psychiatric: Yes Immunizations Current: No Thyroid Disease: Yes (Kit's) Tetanus Vaccination: < 5 Years Menopausal: Yes : 2 Para: 2 Past Surgical History Narrative Surgical Pacemaker, appendectomy, cholecystectomy, right little finger surgery, right ankle surgery, T&A, breast augmentation Appendectomy: Yes (2000) Body Medical Devices: Pacemaker Cardiac Surgery: Yes (Pacemaker) Cholecystectomy: Yes (2002) Genitourinary Surgery: Yes (Bladder tuck) Hysterectomy: Yes (partial) Pacemaker: Yes Tonsillectomy: Yes (and adenoids) Other Surgery: Yes (Breast ) Social History Alcohol Use: Yes (daily) Tobacco Use: No Substance Use: No Allergies-Medications (Allergen,Severity, Reaction): Coded Allergies: duloxetine (Verified Adverse Reaction, Severe, insomnia/celina, 05/31/17) Reported Meds & Prescriptions Reported Meds & Active Scripts Active Metoprolol Tartrate 25 Mg Tab 25 Mg PO BID Reported Premarin (Estrogens, Conjugated) 0.45 Mg Tab 0.45 Mg PO DAILY Lisinopril 10 Mg Tab 10 Mg PO DAILY Leflunomide 20 Mg Tab 20 Mg PO DAILY Cetirizine (Cetirizine HCl) 10 Mg Tab 10 Mg PO DAILY Cranberry Urinary Comfort (Vitamins C & E) 1 Cap 1 Cap PO DAILY Alprazolam 1 Mg Tab 1 Mg PO Q6H PRN Trintellix (Vortioxetine) 10 Mg Tab 10 Mg PO DAILY Levothyroxine (Levothyroxine Sodium) 88 Mcg Tab 88 Mcg PO DAILY Review of Systems General / Constitutional: No: Fever Eyes: No: Visual changes HENT: No: Headaches Cardiovascular: No: Chest Pain or Discomfort Respiratory: No: Shortness of Breath Gastrointestinal: No: Abdominal Pain Genitourinary: No: Dysuria Musculoskeletal: No: Pain Skin: No Rash Neurologic: No: Weakness Psychiatric: Positive: Depression, Mood Disorder, No: Anxiety, Suicidal Ideations, Disorder of Thought, Substance Abuse, Homicidal Ideation Endocrine: No: Polydipsia Hematologic/Lymphatic: No: Easy Bruising Physical Exam Narrative GENERAL: Well-nourished, well-developed patient. Flat affect. Speaks slowly. SKIN: Warm and dry. HEAD: Normocephalic and atraumatic. EYES: No scleral icterus. No injection or drainage. ENT: No nasal drainage noted. Mucous membranes pink. Airway patent. NECK: Supple, trachea midline. Moves head freely without obvious discomfort. CARDIOVASCULAR: Regular rate and rhythm without murmurs, gallops, or rubs. RESPIRATORY: Breath sounds equal bilaterally. No accessory muscle use. GASTROINTESTINAL: Abdomen soft, non-tender, nondistended. EXTREMITIES: No cyanosis or edema. BACK: Nontender without obvious deformity. No CVA tenderness. NEURO: Patient is alert and oriented. no sensorimotor deficits. Nonfocal. Normal speech. PSYCH: No delusions. No auditory or visual hallucinations. Data Data Last Documented VS Vital Signs Date Time Temp Pulse Resp B/P (MAP) Pulse Ox O2 Delivery O2 Flow Rate FiO2 06/01/17 00:57 158/90 (112) Automatic Cuff 06/01/17 00:48 98.0 55 16 98 05/31/17 22:24 Room Air Orders Orders Complete Blood Count With Diff (05/31/17 22:34) Comprehensive Metabolic Panel (05/31/17 22:34) Psych Screen (05/31/17 22:34) Drug Screen, Random Urine (05/31/17 22:34) Alcohol (Ethanol) (05/31/17 22:34) Salicylates (Aspirin) (05/31/17 22:34) Tylenol (Acetaminophen) (05/31/17 22:34) Alcohol Withdrawal Asmt-Ciwa ONCE (06/01/17 02:18) Flumazenil Inj (Romazicon Inj) (06/01/17 02:30) Lorazepam (Ativan) (06/01/17 02:30) Lorazepam Inj (Ativan Inj) (06/01/17 02:30) Lorazepam (Ativan) (06/01/17 02:30) Lorazepam Inj (Ativan Inj) (06/01/17 02:30) Lorazepam Inj (Ativan Inj) (06/01/17 02:30) Lorazepam Inj (Ativan Inj) (06/01/17 02:30) Labs Laboratory Tests Test 05/31/17 23:00 05/31/17 23:02 White Blood Count 5.2 TH/MM3 Red Blood Count 3.55 MIL/MM3 Hemoglobin 13.3 GM/DL Hematocrit 36.9 % Mean Corpuscular Volume 104.1 FL Mean Corpuscular Hemoglobin 37.6 PG Mean Corpuscular Hemoglobin Concent 36.1 % Red Cell Distribution Width 14.5 % Platelet Count 186 TH/MM3 Mean Platelet Volume 7.3 FL Neutrophils (%) (Auto) 36.2 % Lymphocytes (%) (Auto) 49.9 % Monocytes (%) (Auto) 9.2 % Eosinophils (%) (Auto) 3.7 % Basophils (%) (Auto) 1.0 % Neutrophils # (Auto) 1.9 TH/MM3 Lymphocytes # (Auto) 2.6 TH/MM3 Monocytes # (Auto) 0.5 TH/MM3 Eosinophils # (Auto) 0.2 TH/MM3 Basophils # (Auto) 0.1 TH/MM3 CBC Comment AUTO DIFF Differential Comment AUTO DIFF CONFIRMED Blood Urea Nitrogen 8 MG/DL Creatinine 0.72 MG/DL Random Glucose 75 MG/DL Total Protein 6.7 GM/DL Albumin 3.3 GM/DL Calcium Level 8.1 MG/DL Alkaline Phosphatase 65 U/L Aspartate Amino Transf (AST/SGOT) 34 U/L Alanine Aminotransferase (ALT/SGPT) 23 U/L Total Bilirubin 0.2 MG/DL Sodium Level 132 MEQ/L Potassium Level 3.9 MEQ/L Chloride Level 97 MEQ/L Carbon Dioxide Level 23.9 MEQ/L Anion Gap 11 MEQ/L Estimat Glomerular Filtration Rate 83 ML/MIN Salicylates Level LESS THAN 1.7 MG/DL Acetaminophen Level LESS THAN 2.0 MCG/ML Ethyl Alcohol Level 293 MG/DL Urine Opiates Screen NEG Urine Barbiturates Screen NEG Urine Amphetamines Screen NEG Urine Benzodiazepines Screen POS Urine Cocaine Screen NEG Urine Cannabinoids Screen NEG MDM Medical Decision Making Medical Screen Exam Complete: Yes Emergency Medical Condition: Yes Medical Record Reviewed: Yes Interpretation(s) Laboratory Tests Test 05/31/17 23:00 05/31/17 23:02 White Blood Count 5.2 TH/MM3 Red Blood Count 3.55 MIL/MM3 Hemoglobin 13.3 GM/DL Hematocrit 36.9 % Mean Corpuscular Volume 104.1 FL Mean Corpuscular Hemoglobin 37.6 PG Mean Corpuscular Hemoglobin Concent 36.1 % Red Cell Distribution Width 14.5 % Platelet Count 186 TH/MM3 Mean Platelet Volume 7.3 FL Neutrophils (%) (Auto) 36.2 % Lymphocytes (%) (Auto) 49.9 % Monocytes (%) (Auto) 9.2 % Eosinophils (%) (Auto) 3.7 % Basophils (%) (Auto) 1.0 % Neutrophils # (Auto) 1.9 TH/MM3 Lymphocytes # (Auto) 2.6 TH/MM3 Monocytes # (Auto) 0.5 TH/MM3 Eosinophils # (Auto) 0.2 TH/MM3 Basophils # (Auto) 0.1 TH/MM3 CBC Comment AUTO DIFF Blood Urea Nitrogen 8 MG/DL Creatinine 0.72 MG/DL Random Glucose 75 MG/DL Total Protein 6.7 GM/DL Albumin 3.3 GM/DL Calcium Level 8.1 MG/DL Alkaline Phosphatase 65 U/L Aspartate Amino Transf (AST/SGOT) 34 U/L Alanine Aminotransferase (ALT/SGPT) 23 U/L Total Bilirubin 0.2 MG/DL Sodium Level 132 MEQ/L Potassium Level 3.9 MEQ/L Chloride Level 97 MEQ/L Carbon Dioxide Level 23.9 MEQ/L Anion Gap 11 MEQ/L Estimat Glomerular Filtration Rate 83 ML/MIN Acetaminophen Level LESS THAN 2.0 MCG/ML Ethyl Alcohol Level 293 MG/DL Urine Opiates Screen NEG Urine Barbiturates Screen NEG Urine Amphetamines Screen NEG Urine Benzodiazepines Screen POS Urine Cocaine Screen NEG Urine Cannabinoids Screen NEG Differential Diagnosis MDM: High Differential diagnoses: Schizophrenia, schizoaffective disorder, bipolar, anxiety, depression, adjustment reaction, mood disorder NOS, ODD, depressive disorder NOS, dementia, dementia with agitation, psychosis NOS, substance induced mood disorder, DMDD, Asperger syndrome, infection,electrolyte abnormality, malingering. Narrative Course Mental health screening discussed with the patient. Psychiatric screen ordered. The patient has been medically clear. At 0033 AM the patient now has refused psychiatric care. Due to the patient's presenting complaint of depression with suicidal ideation a Ingram act has been initiated to ensure the patient's safety and to assure that she is seen by a psychiatrist. I was asked by the industrial psychology professor to order a CIWA protocol on the psych nurses behalf. This is medical clearance for psychiatric admission Diagnosis Primary Impression: Medical clearance for psychiatric admission Additional Impression: Alcohol intoxication Qualified Codes: F10.920 - Alcohol use, unspecified with intoxication, uncomplicated Condition: Stable Cezar Valenzuela May 31, 2017 23:07
[2017-05-31 23:21] LABS: AUTOMATED NEUTROPHIL # 1.9 TH/MM3 (1.8-7.7); BASOPHIL # 0.1 TH/MM3 (0-0.2); EOSINOPHIL # 0.2 TH/MM3 (0-0.4); EOSINOPHIL % 3.7 % (0.0-4.0); HEMATOCRIT 36.9 % (35.0-46.0); HEMOGLOBIN 13.3 GM/DL (11.6-15.3); LYMPH % 49.9 % (9.0-44.0); LYMPHOCYTE # 2.6 TH/MM3 (1.0-4.8); MEAN CELL VOLUME 104.1 FL (80.0-100.0); MEAN CORPUSCULAR HEMOGLOBIN 37.6 PG (27.0-34.0); MEAN CORPUSCULAR HGB CONC 36.1 % (32.0-36.0); MEAN PLATELET VOLUME 7.3 FL (7.0-11.0); MONO % 9.2 % (0.0-8.0); MONOCYTE # 0.5 TH/MM3 (0-0.9); NEUT % 36.2 % (16.0-70.0); PLATELET COUNT 186 TH/MM3 (150-450); RED BLOOD COUNT 3.55 MIL/MM3 (4.00-5.30); RED CELL DISTRIBUTION WIDTH 14.5 % (11.6-17.2); WHITE BLOOD COUNT 5.2 TH/MM3 (4.0-11.0)
[2017-05-31 23:41] LABS: ACETAMINOPHEN LESS THAN 2.0 MCG/ML (10.0-30.0); ALBUMIN 3.3 GM/DL (3.4-5.0); ALT (GPT) 23 U/L (10-53); AST (GOT) 34 U/L (15-37); BICARBONATE 23.9 MEQ/L (21.0-32.0); CALCIUM 8.1 MG/DL (8.5-10.1); CHLORIDE 97 MEQ/L (98-107); CREATININE 0.72 MG/DL (0.50-1.00); GLOMERULAR FILTRATION RATE 83 ML/MIN (>89); GLUCOSE,RANDOM 75 MG/DL (74-106); SODIUM (NA) 132 MEQ/L (136-145)
[2017-05-31 23:46] LABS: ALKALINE PHOSPHATASE 65 U/L (45-117); BLOOD UREA NITROGEN 8 MG/DL (7-18); TOTAL BILIRUBIN ADULT 0.2 MG/DL (0.2-1.0); TOTAL PROTEIN 6.7 GM/DL (6.4-8.2)
[2017-06-01 00:48] VITALS: BP 182/100; PULSE 55; RESP 16; TEMP 98; O2SAT 98
[2017-06-01 00:57] VITALS: BP 158/90
[2017-06-01] MEDS ORDERED: LORazepam 1 MG TAB PO PRN (02:30)
[2017-06-01] MEDS ORDERED: FLUMAZENIL 0.5 MG/5 ML VIAL IV PUSH PRN (02:30)
[2017-06-01] MEDS ORDERED: LORazepam 2 MG/ML VIAL IV PUSH PRN ×4 (02:30)
[2017-06-01] MEDS ORDERED: LORazepam 2 MG TAB PO PRN (02:30)
[2017-06-01 05:33] VITALS: BP 123/76; PULSE 69; RESP 17; TEMP 98.9; O2SAT 99
[2017-06-01] MEDS ORDERED: MAGNESIUM HYDROXIDE SUSP 30 ML CUP PO PRN (07:30)
[2017-06-01] MEDS ORDERED: BENZTROPINE MESYLATE 2 MG/2 ML VIAL IM PRN (07:30)
[2017-06-01] MEDS ORDERED: ALUMINUM/MAGNESIUM/SIMETH 30 ML CUP PO PRN (07:30)
[2017-06-01] MEDS ORDERED: BENZTROPINE MESYLATE 1 MG TAB PO PRN (07:30)
[2017-06-01] MEDS ORDERED: NICOTINE 21 MG/24 HR PATCH T-DERMAL PRN (07:30)
[2017-06-01] MEDS ORDERED: diphenhydrAMINE HCL 50 MG CAP PO PRN (07:30)
[2017-06-01] MEDS ORDERED: ESTROGENS CONJUGATED 0.45 MG PO SCH (09:00)
[2017-06-01] MEDS ORDERED: NON-FORMULARY DRUG (Vitamins C & E (Cranberry Urinary Comfort) 1 CAP) PO SCH (09:00)
[2017-06-01] MEDS ORDERED: VORTIOXETINE 10 MG PO SCH (09:00)
[2017-06-01] MEDS ORDERED: LEFLUNOMIDE 20 MG PO SCH (09:00)
[2017-06-01] MEDS: REMOVE OLD PATCH T-DERMAL SCH (09:00)
[2017-06-01] MEDS: CETIRIZINE HCL 10 MG TAB PO SCH (09:26)
[2017-06-01] MEDS: LISINOPRIL 10 MG TAB PO SCH (09:26)
[2017-06-01] MEDS: METOPROLOL TARTRATE 25 MG TAB PO SCH ×2 (09:26→21:19)
--- NOTE | 2017-06-01 10:02 | MH ---
cc: ARCENIO MALDONADO DATE OF ADMISSION: 06/01/2017 ADMISSION DIAGNOSES 1. Adjustment disorder with mixed disturbance of emotions and conduct, F43.25 2. Alcohol intoxication, now resolved. 3. History of depression. HISTORY OF PRESENT ILLNESS Ms. Plunkett is a 61-year-old female with a reported history of depression versus bipolar disorder who presented initially to the emergency department on a voluntary basis for psychiatric evaluation. She told the ED provider that she has been depressed and recently broke up with a boyfriend which resulted in exacerbation of her depression. She admitted to contemplating suicide. She was placed under the Ingram Act by the ED provider. Reviewing the electronic medical record, I note that the patient was admitted to the inpatient psychiatric unit [place] [address] Prieto. The patient seen and examined. Chart reviewed. Case discussed with nursing staff. On my examination this morning, the patient is clinically sober. She says that she broke up with her boyfriend last week and her son age 32 moved in to live with her in January and both of these have been stressors for her. She says that she has been feeling increasingly depressed. She wanted her outpatient psychiatrist to take her off her antidepressant medications but is glad in retrospect that he did not. She says that starting yesterday she began to contemplate suicide. She says that she wrote a letter to her son so that he would not think it was his fault. She drank a bottle of wine and planned to slit her wrists, and she does have a history of cutting in the past. She endorses ongoing depression but otherwise minimizes her current symptomatology. She denies sleep or appetite disturbance. Denies hopelessness or worthlessness. No hypomanic or manic symptoms presently. She denies any suicidal or homicidal ideation at this time but seems unreliable to contract for safety. She denies audiovisual hallucinations. I can elicit no delusional beliefs. The remainder of the psychiatric ROS is negative. She verbalizes no physical complaints at this time. PAST PSYCHIATRIC HISTORY The patient reports a history of depression versus bipolar disorder. She also notes that a personality disorder has been entertained as a diagnosis. She follows with Dr. Cervantes. She says that she was most recently admitted following an episode of cutting in 2005, but she does have the more recent admission with Dr. Caliendo in 12 as I said. She endorses a history of cutting in 2005 and again in 2011. FAMILY HISTORY The patient reports that her mother had depression. There is no family history of suicide. CHEMICAL DEPENDENCY HISTORY The patient denies being a regular drinker. She says that she went to go buy the bottle of wine specifically in order to pursue the suicide attempt. However, reviewing previous toxicological results, it appears that her alcohol level has not infrequently been elevated in the past. SOCIAL HISTORY The patient lives with her son Arnie age 32 and also a pet kitten. She is . She broke up with her boyfriend last week. She has no other children. She has two years of college and subsequently went to trade school. 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 She is a Jainism. She denies any access to guns or firearms. PAST MEDICAL HISTORY Includes a history of Kit's, Elicia-Stover and bradycardia per patient. She also has a history of hypertension. MEDICATIONS 1. Cetirizine 10 mg daily. 2. Metoprolol 25 mg twice daily. 3. Lisinopril 10 mg daily. 4. Vortioxetine 10 mg daily. 5. Alprazolam 1 mg every 6 hours as needed for anxiety. 6. Conjugated estrogens 0.45 mg tab daily. 7. Leflunomide 20 mg daily. 8. Vitamin C and E supplement. ALLERGIES DULOXETINE. REVIEW OF SYSTEMS Except as noted in HPI this is negative. PHYSICAL EXAMINATION VITAL SIGNS: Temperature 98.9, pulse 69, respirations 17, blood pressure 123/76, pulse oximetry 99% on room air. Physical examination was completed by the ED provider. On my examination today the patient appears to be in no acute physical distress. No motor abnormalities noted. LABORATORIES Laboratories reviewed: CBC reveals normal white blood cell count, normal hemoglobin, normal platelet count. She does have macrocytosis without anemia. CMP reveals mild hyponatremia at 132 and mildly decreased GFR at 83. Toxicology positive for benzodiazepines which are apparently prescribed to her and alcohol level was 293. MENTAL STATUS EXAMINATION The patient is in hospital attire. She is well-groomed. She is awake and alert and oriented x4. No evidence of delirium. No motor abnormalities noted. No signs of withdrawal noted. Speech is within normal limits for rate, tone and volume. Language and fund of knowledge at least average. Focus and concentration intact. Memory grossly intact on clinical exam. Mood is depressed but affect remains fairly full and reactive. Thought process linear. No loosening of associations. No delusional material elicited. Denies audiovisual hallucinations and does not appear internally stimulated. She denies SI or HI presently but seems unreliable to contract for safety. Insight and judgment are presently unclear. ASSESSMENT AND PLAN This is a 61-year-old female with psychiatric history as detailed above who presents under a Ingram Act. On my examination today, the patient reports that she was planning to complete suicide yesterday by drinking alcohol and then cutting her wrists. She is minimizing her symptoms presently but does admit that she remains depressed. Looking at the totality of the case and given the circumstances of her presentation here, I believe that at the very least an observation stay is indicated to monitor for any impairments in safety. Admit inpatient. We will plan to observe under the Ingram Act. I will continue the patient' Vortioxetine which will need to be brought in from home as at is not stocked in our pharmacy. I will continue the patient's Xanax as needed for anxiety. CIWA scale with Ativan for the management of any GABAergic withdrawal. Seizure and fall precautions. Consult to the hospitalist. Continue the patient's general medical medications. Check BMP, TSH, lipid panel, hemoglobin A1c and vitamin B12 level given the macrocytosis in the morning. Vitals every shift. Counselor to see. Disposition planning. Estimated length of stay: 3-5 days. Arcenio Maldonado DC/[facility] /7:20 AM /9:01 AM [facility]AME
[2017-06-01 10:29] VITALS: BP 164/87; PULSE 68; RESP 18; TEMP 98.4; O2SAT 98
--- NOTE | 2017-06-01 13:57 | PD.CONS ---
HPI Service [facility] Hospitalists Consult Requested By Dr. Maldonado Reason for Consult Management of Patient's Chronic Medical Conditions Primary Care Physician Jerel Baltazar MD Diagnoses: History of Present Illness Written by Jackie Victor, acting as scribe for Dr. Vogt on 06/01/17 at 13: 45. 61-year-old female with history of anxiety, depression, hypertension, arrhythmia status post pacemaker, Kit, Elicia-Stover virus, mitral valve prolapse, hypothyroidism, admitted to inpatient psychiatry for depression with suicidal ideations. Hospitalist consulted for medical management of chronic medical conditions. The patient is seen resting in bed in the psychiatric unit. She has no specific medical complaints including no headache, lightheadedness, dizziness, chest pain, palpitations, shortness breath, or abdominal complaints. She is requesting her medications be restarted. She states she takes Synthroid at 1 AM, and the rest of her medications at 5 AM. She states she did not get her morning medications on time this morning and started to feel queasy, however felt back to normal after receiving her medications. The patient states she binged on alcohol yesterday, but is not a daily drinker. Denies any tobacco or illicit drug use. She has no medical complaints reported this time. Review of Systems Except as stated in HPI: all other systems reviewed are Neg Past Family Social History Allergies: Coded Allergies: duloxetine (Verified Adverse Reaction, Severe, insomnia/celina, 05/31/17) Past Medical History anxiety depression hypertension arrhythmia status post pacemaker Kit Elicia-Stover virus mitral valve prolapse hypothyroidism Past Surgical History Pacemaker Appendectomy Cholecystectomy Right fifth finger surgery Right ankle surgery Tonsilloadenoidectomy Breast augmentation Bladder tuck Hysterectomy Reported Medications Metoprolol Tartrate 25 Mg Tab 25 Mg PO BID Premarin (Estrogens, Conjugated) 0.45 Mg Tab 0.45 Mg PO DAILY Lisinopril 10 Mg Tab 10 Mg PO DAILY Leflunomide 20 Mg Tab 20 Mg PO DAILY Cetirizine (Cetirizine HCl) 10 Mg Tab 10 Mg PO DAILY Cranberry Urinary Comfort (Vitamins C & E) 1 Cap 1 Cap PO DAILY Alprazolam 1 Mg Tab 1 Mg PO Q6H PRN Trintellix (Vortioxetine) 10 Mg Tab 10 Mg PO DAILY Active Ordered Medications Current Medications Medications (Trade) Dose Ordered Sig/Victor M Route Start Time Stop Time Status Last Admin (Romazicon Inj) 0.2 mg Q1M PRN IV PUSH 06/01/17 02:30 (Ativan) 1 mg Q4H PRN PO 06/01/17 02:30 (Ativan Inj) 1 mg Q4H PRN IV PUSH 06/01/17 02:30 (Ativan) 2 mg Q2H PRN PO 06/01/17 02:30 (Ativan Inj) 2 mg Q2H PRN IV PUSH 06/01/17 02:30 (Ativan Inj) 2 mg Q1H PRN IV PUSH 06/01/17 02:30 (Ativan Inj) 2 mg Q15M PRN IV PUSH 06/01/17 02:30 (Xanax) 1 mg Q6H PRN PO 06/01/17 07:30 (ZyrTEC) 10 mg DAILY PO 06/01/17 09:00 06/01/17 09:26 (Prinivil) 10 mg DAILY PO 06/01/17 09:00 06/01/17 09:26 (Lopressor) 25 mg BID PO 06/01/17 09:00 06/01/17 09:26 Patient Own Medication PT OWN MED: Estroge... DAILY PO 06/01/17 09:00 Future Hold Patient Own Medication PT OWN MED: Leflunom... DAILY PO 06/01/17 09:00 Future Hold Patient Own Medication PT OWN MED: Vortioxetine (Trintellix... DAILY PO 06/01/17 09:00 Future Hold (Benadryl) 50 mg HS PRN PO 06/01/17 07:30 (Tylenol) 650 mg Q4H PRN PO 06/01/17 07:30 (Milk Of Magnesia Liq) 30 ml DAILY PRN PO 06/01/17 07:30 (Mag-Al Plus Susp Liq) 30 ml Q6H PRN PO 06/01/17 07:30 (Habitrol 21 Mg Patch.24 Hr) 1 patch DAILY PRN T-DERMAL 06/01/17 07:30 (Cogentin) 1 mg Q12H PRN PO 06/01/17 07:30 (Cogentin Inj) 1 mg Q12H PRN IM 06/01/17 07:30 Miscellaneous Information 1 DAILY T-DERMAL 06/01/17 09:00 (Synthroid) 88 mcg DAILY@0600 PO 06/02/17 06:00 Family History Father at age 55 with CVA, AAA Mother age 89, AAA, thyroid cancer, autoimmune disorders Social History Occasional alcohol use, not a daily drinker Denies any tobacco use Denies any illicit drug use Physical Exam Vital Signs Vital Signs Date Time Temp Pulse Resp B/P (MAP) Pulse Ox O2 Delivery O2 Flow Rate FiO2 06/01/17 10:29 98.4 68 18 164/87 (112) 98 06/01/17 08:09 06/01/17 05:33 98.9 69 17 123/76 (92) 99 Room Air 06/01/17 00:57 158/90 (112) Automatic Cuff 06/01/17 00:48 98.0 55 16 182/100 (127) 98 05/31/17 22:24 98.5 61 15 160/85 (110) 95 Room Air Physical Exam GENERAL: Well-nourished, well-developed pleasant middle-aged female patient in [facility]. SKIN: Warm and dry. No rash. HEAD: Normocephalic. Atraumatic. EYES: Pupils equal and round. No scleral icterus. No injection or drainage. ENT: No nasal bleeding or discharge. Mucous membranes pink and moist. NECK: Supple. Trachea midline. CARDIOVASCULAR: Regular rate and rhythm. S1, S2 noted. No murmur appreciated. RESPIRATORY: No accessory muscle use. Clear to auscultation. Breath sounds equal bilaterally. GASTROINTESTINAL: Abdomen soft, non-tender, nondistended. Normoactive bowel sounds x4. MUSCULOSKELETAL: No obvious deformities. Extremities without clubbing, cyanosis , or edema. NEUROLOGICAL: Awake and alert. No obvious cranial nerve deficits. Motor grossly within normal limits. Normal speech. PSYCHIATRIC: Appropriate mood and affect; insight and judgment normal. Laboratory Laboratory Tests Test 05/31/17 23:00 05/31/17 23:02 White Blood Count 5.2 Red Blood Count 3.55 Hemoglobin 13.3 Hematocrit 36.9 Mean Corpuscular Volume 104.1 Mean Corpuscular Hemoglobin 37.6 Mean Corpuscular Hemoglobin Concent 36.1 Red Cell Distribution Width 14.5 Platelet Count 186 Mean Platelet Volume 7.3 Neutrophils (%) (Auto) 36.2 Lymphocytes (%) (Auto) 49.9 Monocytes (%) (Auto) 9.2 Eosinophils (%) (Auto) 3.7 Basophils (%) (Auto) 1.0 Neutrophils # (Auto) 1.9 Lymphocytes # (Auto) 2.6 Monocytes # (Auto) 0.5 Eosinophils # (Auto) 0.2 Basophils # (Auto) 0.1 CBC Comment AUTO DIFF Differential Comment AUTO DIFF CONFIRMED Blood Urea Nitrogen 8 Creatinine 0.72 Random Glucose 75 Total Protein 6.7 Albumin 3.3 Calcium Level 8.1 Alkaline Phosphatase 65 Aspartate Amino Transf (AST/SGOT) 34 Alanine Aminotransferase (ALT/SGPT) 23 Total Bilirubin 0.2 Sodium Level 132 Potassium Level 3.9 Chloride Level 97 Carbon Dioxide Level 23.9 Anion Gap 11 Estimat Glomerular Filtration Rate 83 Salicylates Level LESS THAN 1.7 Acetaminophen Level LESS THAN 2.0 Ethyl Alcohol Level 293 Urine Opiates Screen NEG Urine Barbiturates Screen NEG Urine Amphetamines Screen NEG Urine Benzodiazepines Screen POS Urine Cocaine Screen NEG Urine Cannabinoids Screen NEG Result Diagram: 05/31/17229905/31/172299 Assessment and Plan Problem List: (1) HTN (hypertension) ICD Code: I10 - Essential (primary) hypertension (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 Hospitalist consulted for medical management of chronic medical conditions. Depression with Suicidal Ideations: acute, initially presented voluntarily, then Ingram Act placed in the ED -Continue management per psychiatry Hypertension: BP intermittently elevated, likely secondary to alcohol intoxication upon arrival and missing doses of home meds. -Continue patient's home medications including metoprolol 25 mg bid and lisinopril 10 mg qd -Will continue to monitor BP and adjust antihypertensives as needed Kit's Disease & Hypothyroidism: Chronic -Continue patient's synthroid and Leflunomide Seasonal Allergies: Chronic -Continue patient's cetirizine DVT Prophylaxis: patient is ambulatory Discussed Condition With Patient This note was transcribed by armin [Jackie Victor]. I, Dr. Venancio Vogt personally performed the history, physical exam, and medical decision making; and confirmed the accuracy of the information in the transcribed note. Authenticated by Dr. Venancio Vogt on 06/01/17 at 14:36. Jackie Victro PA-C Jun 01, 2017 13:57 Venancio Vogt MD Jun 01, 2017 14:37
[2017-06-01 21:19] VITALS: BP 131/77; PULSE 77; O2SAT 97
[2017-06-01] MEDS: ALPRAZolam 1 MG TAB PO PRN (21:21)
[2017-06-01] MEDS: ACETAMINOPHEN 325 MG TAB PO PRN (21:22)
[2017-06-02] MEDS: LEVOTHYROXINE SODIUM 88 MCG TAB PO SCH (05:59)
[2017-06-02 06:05] VITALS: BP 109/68; PULSE 60; RESP 16; TEMP 98; O2SAT 100
[2017-06-02] MEDS: LISINOPRIL 10 MG TAB PO SCH (08:32)
[2017-06-02] MEDS: CETIRIZINE HCL 10 MG TAB PO SCH (08:32)
[2017-06-02] MEDS: METOPROLOL TARTRATE 25 MG TAB PO SCH ×2 (08:32→21:19)
[2017-06-02] MEDS: REMOVE OLD PATCH T-DERMAL SCH (09:00)
[2017-06-02 10:17] LABS: BICARBONATE 29.3 MEQ/L (21.0-32.0); BLOOD UREA NITROGEN 11 MG/DL (7-18); CALCIUM 8.6 MG/DL (8.5-10.1); CHLORIDE 102 MEQ/L (98-107); CREATININE 1.03 MG/DL (0.50-1.00); GLOMERULAR FILTRATION RATE 55 ML/MIN (>89); GLUCOSE,RANDOM 83 MG/DL (74-106); SODIUM (NA) 139 MEQ/L (136-145)
[2017-06-02 10:19] LABS: CHOLESTEROL 210 MG/DL (120-200); TRIGLYCERIDES 116 MG/DL (42-150)
[2017-06-02 10:44] LABS: CHOLESTEROL/ HDL RATIO 1.64 RATIO; HDL CHOLESTEROL 127.3 MG/DL (40.0-60.0); LDL CHOLESTEROL 60 MG/DL (0-99)
[2017-06-02 12:47] LABS: HEMOGLOBIN A1C 4.5 % (4.3-6.0)
--- NOTE | 2017-06-02 14:05 | HHI.PYPN ---
Subjective Remarks Pt seen and discussed with staff. She is compliant with medications and denies side effects. She slept most of morning but has been out particpating in unit activites.She denies SI/HI today. She states that she was overwhelmed by recent deaths in family and adjusting to adult son moving back into her home. "I guess I just had a meltdown". Mental Status Examination Appearance: Appropriate Consciousness: Alert Orientation: x4 Motor Activity: Normal gait Speech: Unremarkable Language: Adequate Fund of Knowledge: Adequate Attention and Concentration: Adequate Memory: Unremarkable Mood: Sad Affect: Sad Thought Process & Associations: Linear Thought Content: Appropriate Hallucination Type: None Delusion Type: None Suicidal Ideation: No Suicidal Plan: No Suicidal Intention: No Homicidal Ideation: No Homicidal Plan: No Homicidal Intention: No Insight: Fair Judgment: Impulsive Results Labs Test 06/02/17 08:45 Blood Urea Nitrogen 11 MG/DL Creatinine 1.03 MG/DL Random Glucose 83 MG/DL Calcium Level 8.6 MG/DL Sodium Level 139 MEQ/L Potassium Level 3.2 MEQ/L Chloride Level 102 MEQ/L Carbon Dioxide Level 29.3 MEQ/L Anion Gap 8 MEQ/L Estimat Glomerular Filtration Rate 55 ML/MIN Hemoglobin A1c 4.5 % Triglycerides Level 116 MG/DL Cholesterol Level 210 MG/DL LDL Cholesterol 60 MG/DL HDL Cholesterol 127.3 MG/DL Cholesterol/HDL Ratio 1.64 RATIO Vitamin B12 Level 677 PG/ML Thyroid Stimulating Hormone 3rd Gen 2.130 uIU/ML Vitals/IOs Vital Signs Date Time Temp Pulse Resp B/P (MAP) Pulse Ox O2 Delivery O2 Flow Rate FiO2 06/02/17 06:05 98.0 60 16 109/68 (82) 100 06/01/17 05:33 Room Air Assessment & Plan Problem List: (1) Adjustment disorder with mixed disturbance of emotions and conduct ICD Codes: F43.25 - Adjustment disorder with mixed disturbance of emotions and conduct Assessment & Plan Continue current tx plan Estimated LOS: days Justification for Cont. Inpt. monitoring for safety Natalie Quiros MD Jun 02, 2017 14:05
[2017-06-02] MEDS: ACETAMINOPHEN 325 MG TAB PO PRN (16:15)
[2017-06-02 17:08] VITALS: BP 144/85; PULSE 68; RESP 18; TEMP 98; O2SAT 98
[2017-06-02] MEDS: ALPRAZolam 1 MG TAB PO PRN (21:21)
[2017-06-03 05:57] VITALS: BP 114/55; PULSE 61; RESP 16; TEMP 98.2; O2SAT 95
[2017-06-03] MEDS: LEVOTHYROXINE SODIUM 88 MCG TAB PO SCH (06:15)
[2017-06-03] MEDS: REMOVE OLD PATCH T-DERMAL SCH (09:00)
[2017-06-03] MEDS: METOPROLOL TARTRATE 25 MG TAB PO SCH (09:21)
[2017-06-03] MEDS: CETIRIZINE HCL 10 MG TAB PO SCH (09:21)
[2017-06-03] MEDS: LISINOPRIL 10 MG TAB PO SCH (09:21)
[2017-06-03] MEDS: ALPRAZolam 1 MG TAB PO PRN (09:26)
[2017-06-03] MEDS ORDERED: POTASSIUM CHLORIDE 10 MEQ CONTROLLED RELEASE TAB PO ONE (13:45)
--- NOTE | 2017-06-03 13:46 | HHI.DS ---
Psychiatry Discharge Summary Inpatient Psychiatric care?: Yes Advance Directive: Yes Mental Health AdvanceDirective: No Health Care Proxy: No Admission Admission Date Jun 01, 2017 at 07:27 Admission Diagnosis: (1) Adjustment disorder with mixed disturbance of emotions and conduct ICD Code: F43.25 - Adjustment disorder with mixed disturbance of emotions and conduct (2) Alcohol intoxication ICD Code: F10.929 - Alcohol use, unspecified with intoxication, unspecified Brief History Ms. Plunkett is a 61-year-old female with a reported history of depression versus bipolar disorder who presented initially to the emergency department on a voluntary basis for psychiatric evaluation. She told the ED provider that she has been depressed and recently broke up with a boyfriend which resulted in exacerbation of her depression. She admitted to contemplating suicide. She was placed under the Ingram Act by the ED provider. Reviewing the electronic medical record, I note that the patient was admitted to the inpatient psychiatric unit [place] [address] Prieto. The patient seen and examined. Chart reviewed. Case discussed with nursing staff. On my examination this morning, the patient is clinically sober. She says that she broke up with her boyfriend last week and her son age 32 moved in to live with her in January and both of these have been stressors for her. She says that she has been feeling increasingly depressed. She wanted her outpatient psychiatrist to take her off her antidepressant medications but is glad in retrospect that he did not. She says that starting yesterday she began to contemplate suicide. She says that she wrote a letter to her son so that he would not think it was his fault. She drank a bottle of wine and planned to slit her wrists, and she does have a history of cutting in the past. She endorses ongoing depression but otherwise minimizes her current symptomatology. She denies sleep or appetite disturbance. Denies hopelessness or worthlessness. No hypomanic or manic symptoms presently. She denies any suicidal or homicidal ideation at this time but seems unreliable to contract for safety. She denies audiovisual hallucinations. I can elicit no delusional beliefs. The remainder of the psychiatric ROS is negative. She verbalizes no physical complaints at this time. Tobacco Use In Past 30 Days: No Tobacco Past 30 Days Alcohol Use: 2-4 Times Per Month Hospital Course Patient was admitted to a locked, inpatient psychiatric unit. A general medical consultation was obtained and the patient was medically cleared prior to discharge. Appropriate precautions were in place throughout patient's hospital stay. Patient was seen and examined on the unit by psychiatry and also visited by counselor. There was no evidence of any suicidality or homicidality on the inpatient unit. The patient remained in good behavioral control and was medication compliant. On the day of discharge: Patient seen and examined with nurse. Chart reviewed. Case discussed with nursing staff. Patient noted to be calm and pleasant. On my examination today, the patient is requesting discharge from the inpatient psychiatric unit today. She denies any suicidal or homicidal ideation, intent or plan on direct questioning and contracts for safety. The patient denies any ongoing low mood, nor can I elicit any depressive or hypomanic/manic symptoms at this time. She denies any audiovisual hallucinations and I can elicit no delusional material. There is no evidence of impairment in reality construction. She says that she has had a cathartic meeting with her family over the weekend and feels very much improved. No side effects from medications. No physical complaints. Suicide and violence risk assessment on day of discharge both suggest low imminent risk. Substance use constitutes a chronic risk factor, and I have encouraged chemical dependency evaluation and treatment on an outpatient basis. The patient's level of function is adequate for outpatient care. She does not meet criteria for involuntary psychiatric hospitalization, and I have no basis to retain her on the unit any longer over her objection. I have offered to retain the patient on the unit on a voluntary basis for further observation, but she has declined. The patient will therefore be discharged home today with psychiatric follow-up as arranged by counselor. Patient is also to follow-up with primary care. I have counseled the patient regarding warning signs for need to return to the psychiatric emergency room as part of a general safety plan. Results Blood Pressure 114 / 55 Vital Signs Date Time Temp Pulse Resp B/P (MAP) Pulse Ox O2 Delivery O2 Flow Rate FiO2 06/03/17 05:57 98.2 61 16 114/55 (74) 95 06/01/17 05:33 Room Air Laboratory Tests Test 05/31/17 23:00 05/31/17 23:02 06/02/17 08:45 Red Blood Count 3.55 MIL/MM3 (4.00-5.30) Mean Corpuscular Volume 104.1 FL (80.0-100.0) Mean Corpuscular Hemoglobin 37.6 PG (27.0-34.0) Mean Corpuscular Hemoglobin Concent 36.1 % (32.0-36.0) Lymphocytes (%) (Auto) 49.9 % (9.0-44.0) Monocytes (%) (Auto) 9.2 % (0.0-8.0) Albumin 3.3 GM/DL (3.4-5.0) Calcium Level 8.1 MG/DL (8.5-10.1) Sodium Level 132 MEQ/L (136-145) Chloride Level 97 MEQ/L (98-107) Estimat Glomerular Filtration Rate 83 ML/MIN (>89) 55 ML/MIN (>89) Salicylates Level LESS THAN 1.7 MG/DL Acetaminophen Level LESS THAN 2.0 MCG/ML Ethyl Alcohol Level 293 MG/DL (0-5) Urine Benzodiazepines Screen POS (NEG) Creatinine 1.03 MG/DL (0.50-1.00) Potassium Level 3.2 MEQ/L (3.5-5.1) Cholesterol Level 210 MG/DL (120-200) HDL Cholesterol 127.3 MG/DL (40.0-60.0) Laboratory Results Test 06/02/17 08:45 Cholesterol Level 210 MG/DL (120-200) HDL Cholesterol 127.3 MG/DL (40.0-60.0) Hemoglobin A1c 4.5 % (4.3-6.0) LDL Cholesterol 60 MG/DL (0-99) Triglycerides Level 116 MG/DL (42-150) Summary of Procedures None done Imaging None done Pending results at discharge: No Medications # of Antipsychotic meds at D/C: 0 Approp Antipsych med options 1 - Minimum of three failed multiple trials of monotherapy. 2 - Documented plan to taper to monotherapy due to previous use of multiple meds OR cross-taper in progress at D/C. 3 - Documentation of augmentation of Clozapine. 4 - Justification other than those listed in allowable values 1-3, document here : Discharge Discharge Date: Jun 03, 2017 Discharge Diagnosis: (1) Adjustment disorder with mixed disturbance of emotions and conduct Diagnosis: Principal (resolved) ICD Code: F43.25 - Adjustment disorder with mixed disturbance of emotions and conduct (2) Alcohol intoxication Diagnosis: Secondary (resolved, rule out alcohol use disorder) ICD Code: F10.929 - Alcohol use, unspecified with intoxication, unspecified Status: Acute Pt Condition on Discharge: Stable Discharge Disposition: Discharge Home Discharge Instructions Diet Instructions: Heart Healthy Diet Activities you can perform: Weight Bearing as Odilon Scheduled Appointment: Dr. Cervantes Appointment Date: Jun 12, 2017 Appointment Time: 1pm New Orders: BASIC METABOLIC PROF - 1 Week Continued Medications: Alprazolam (Alprazolam) 1 Mg Tab 1 MG PO Q6H PRN for ANXIETY, TAB 0 Refills Cetirizine (Cetirizine) 10 Mg Tab 10 MG PO DAILY for Allergies, TAB 0 Refills Estrogens, Conjugated (Premarin) 0.45 Mg Tab 0.45 MG PO DAILY for Estrogen Supplements, #30 TAB 0 Refills Leflunomide (Leflunomide) 20 Mg Tab 20 MG PO DAILY, TAB Lisinopril (Lisinopril) 10 Mg Tab 10 MG PO DAILY, #30 TAB 0 Refills Metoprolol Tartrate (Metoprolol Tartrate) 25 Mg Tab 25 MG PO BID, #60 TAB 0 Refills Vitamins C & E (Cranberry Urinary Comfort) 1 Cap 1 CAP PO DAILY for Urinary Symptom Managemen, CAP 0 Refills Vortioxetine (Trintellix) 10 Mg Tab 10 MG PO DAILY for Control Depression, #30 TAB 0 Refills Discharge Time <= 30 minutes Mental Status Examination Appearance: Appropriate Consciousness: Alert Orientation: x4 Motor Activity: Normal gait, Other (no motor abnormalities noted) Speech: Unremarkable Language: Adequate Fund of Knowledge: Adequate Attention and Concentration: Adequate Memory: Unremarkable Mood: Appropriate Affect: Appropriate Thought Process & Associations: Intact, Logical, Goal directed, Linear Thought Content: Appropriate Hallucination Type: None Delusion Type: None Suicidal Ideation: No Suicidal Plan: No Suicidal Intention: No Homicidal Ideation: No Homicidal Plan: No Homicidal Intention: No Insight: Adequate Judgment: Adequate Discharge/Advance Care Plan Health Problems: (1) Adjustment disorder with mixed disturbance of emotions and conduct Goals to promote your health * To prevent worsening of your condition and complications * To maintain your health at the optimal level Directions to meet your goals Take your medications as prescribed Follow your dietary instruction Follow activity as directed Keep your appointments as scheduled Take your immunizations and boosters as scheduled If your symptoms worsen call your PCP, if no PCP go to Urgent Care Center or Emergency Room For 24/12 questions related to your inpatient stay or results of tests pending at discharge, please contact Dr. Vinny Maldonado at Smoking is Dangerous to Your Health. Avoid second hand smoking Problem Qualifiers (1) Alcohol intoxication: Qualified Codes: F10.920 - Alcohol use, unspecified with intoxication, uncomplicated Vinny Maldonado MD Jun 03, 2017 13:46
== END 2017-06-03 16:15 | disposition home or self-care (01) | DRG 882 ==
LOC: NEPD 22:20 → NEDA 06-01 07:27 → H260 06-01 08:15
PROVIDERS: ADMIT Psychiatry & Neurology Psychiatry; ATTEND Psychiatry & Neurology Psychiatry
DX: F43.25 Adjustment disorder with mixed disturbance of emotions and conduct (principal); R45.851 Suicidal ideations; I10 Essential (primary) hypertension; F10.129 Alcohol abuse with intoxication, unspecified; Y90.8 Blood alcohol level of 240 mg/100 ml or more; F32.9 Major depressive disorder, single episode, unspecified; E03.9 Hypothyroidism, unspecified; E06.3 Autoimmune thyroiditis; J30.2 Other seasonal allergic rhinitis; I34.1 Nonrheumatic mitral (valve) prolapse; F41.9 Anxiety disorder, unspecified; M19.90 Unspecified osteoarthritis, unspecified site; Z81.8 Family history of other mental and behavioral disorders; Z91.5 Personal history of self-harm; Z95.0 Presence of cardiac pacemaker
CPT/HCPCS: 80048; 80053; 80061; 80307; 82607; 83036; 84443; 85025

== ENCOUNTER 2017-08-02 10:47 | Observation (INO) | payer MEDICARE, OTHER ==
[2017-08-02] VITALS (7 sets, daily range): BP systolic 127–168; BP diastolic 64–85; PULSE 60–72; RESP 17–21; TEMP 97.9–98.1; O2SAT 97–98
[~2017-08-02] VITALS: Ht 177.8 cm; Wt 80.0 kg
[~2017-08-02 10:47] MED LIST changes: -LEVO88TA2 PO; +PREM0.45 PO
[2017-08-02] MEDS ORDERED: NITROGLYCERIN 2% OINT 1 GM PACKET TOP ONE (12:15)
[2017-08-02] MEDS ORDERED: ASPIRIN 81 MG CHEW TAB PO ONE (12:15)
[2017-08-02] MEDS ORDERED: SODIUM CHLORIDE 0.9% FLUSH 10 ML FLUSH IVF PRN (12:15)
--- NOTE | 2017-08-02 12:44 | RADRPT ---
EXAM DATE/TIME: 08/02/2017 12:25 [facility] COMPARISON: No previous studies available for comparison. INDICATIONS : Heaviness and pressure in the chest, lower extremities feel heavy, history of Kit disease MEDICAL HISTORY : Hypertension. Hashimotos, cardiac problems, sinus problems SURGICAL HISTORY : Pacemaker. thyroid ENCOUNTER: Initial ACUITY: 4 - 6 days PAIN SCORE: 0/10 LOCATION: Bilateral chest FINDINGS: A single view of the chest demonstrates the lungs to be symmetrically aerated without evidence of mas s, infiltrate or effusion. The cardiomediastinal contours are unremarkable. Pacer lead tips in right atrium and right ventricle. Osseous structures are intact. CONCLUSION: 1. No active disease. Pacer leads as above. Cezar Wall MD on August 02, 2017 at 12:41 Board Certified Radiologist. This report was verified electronically.
--- NOTE | 2017-08-02 12:46 | PD ---
HPI Chief Complaint: Chest Pain Time Seen by Provider: 12:13 Travel History International Travel<30 days: No Contact w/Intl Traveler<30days: No Traveled to known affect area: No History of Present Illness HPI c/o pressure, to chest, substernal, nonrad, 12/10, "like an elephant is sitting on my chest"....patient has family h/o cardiac disease and is concerned about it....states she cannot do mri because of pacer and has already had a "negative " stress test about 2 years ago. patient is amenable to cath if possible to put her mind at ease taht she does not have CAD. no alleviating/aggravating factors...no assoc factors such as fever/cough/runny nose/rash/n/v/d/abdpain/ backpain at this time. pcp cuong card: cash all:cymbalta pmhx:htn, pacer, hashimotos, RA, hypothyroid, mitral valve prolapse pshx: appy/gb/part hyst/pacer/t+a PFSH Past Medical History Arthritis: Yes Autoimmune Disease: Yes Blood Disorders: No Anxiety: Yes Depression: Yes Heart Rhythm Problems: Yes (Mitral valve prolapse) Cancer: No Cardiovascular Problems: Yes High Cholesterol: No Chest Pain: No Congestive Heart Failure: No Cerebrovascular Accident: No Diabetes: No Diminished Hearing: No Endocrine: Yes Gastrointestinal Disorders: No Genitourinary: Yes (Frequent UTI's) Hypertension: No Immune Disorder: Yes (Ikt's, Elicia-barre) Implanted Vascular Access Dvce: Yes Musculoskeletal: Yes Neurologic: No Psychiatric: Yes Reproductive: No Respiratory: No Immunizations Current: No Migraines: No Seizures: No Thyroid Disease: Yes (Kit's) Menopausal: Yes : 2 Para: 2 Past Surgical History Abdominal Surgery: Yes (apendectomy) Appendectomy: Yes (2000) Body Medical Devices: Pacemaker Cardiac Surgery: Yes (Pacemaker) Cholecystectomy: Yes (2002) Ear Surgery: No Endocrine Surgery: No Eye Surgery: No Genitourinary Surgery: Yes (Bladder tuck) Hysterectomy: Yes (partial) Oral Surgery: No Pacemaker: Yes Thoracic Surgery: No Tonsillectomy: Yes (and adenoids) Other Surgery: Yes (Breast ) Social History Alcohol Use: Yes (daily) Tobacco Use: No Substance Use: No Allergies-Medications (Allergen,Severity, Reaction): Coded Allergies: duloxetine (Verified Adverse Reaction, Severe, insomnia/celina, 08/02/17) Reported Meds & Prescriptions Reported Meds & Active Scripts Active Metoprolol Tartrate 25 Mg Tab 25 Mg PO BID Reported Premarin (Estrogens, Conjugated) 0.45 Mg Tab 0.45 Mg PO DAILY Lisinopril 10 Mg Tab 10 Mg PO DAILY Leflunomide 20 Mg Tab 20 Mg PO DAILY Cetirizine (Cetirizine HCl) 10 Mg Tab 10 Mg PO DAILY Cranberry Urinary Comfort (Vitamins C & E) 1 Cap 1 Cap PO DAILY Alprazolam 1 Mg Tab 1 Mg PO Q6H PRN Trintellix (Vortioxetine) 10 Mg Tab 10 Mg PO DAILY Physical Exam Narrative GENERAL: SKIN: Warm and dry. HEAD: Atraumatic. Normocephalic. EYES: Pupils equal and round. No scleral icterus. No injection or drainage. ENT: No nasal bleeding or discharge. Mucous membranes pink and moist. NECK: Trachea midline. No JVD. CARDIOVASCULAR: Regular rate and rhythm. RESPIRATORY: No accessory muscle use. Clear to auscultation. Breath sounds equal bilaterally. GASTROINTESTINAL: Abdomen soft, non-tender, nondistended. MUSCULOSKELETAL: Extremities without clubbing, cyanosis, or edema. No obvious deformities. NEUROLOGICAL: Awake and alert. No obvious cranial nerve deficits. Motor grossly within normal limits. Five out of 5 muscle strength in the arms and legs. Normal speech. PSYCHIATRIC: Appropriate mood and affect; insight and judgment normal. Data Data Last Documented VS Vital Signs Date Time Temp Pulse Resp B/P (MAP) Pulse Ox O2 Delivery O2 Flow Rate FiO2 08/02/17 12:51 60 21 144/68 (93) 98 Room Air 08/02/17 10:57 98.0 Orders Orders Electrocardiogram (08/02/17 12:14) B-Type Natriuretic Peptide (08/02/17 12:14) Ckmb (Isoenzyme) Profile (08/02/17 12:14) Complete Blood Count With Diff (08/02/17 12:14) Comprehensive Metabolic Panel (08/02/17 12:14) D-Dimer (08/02/17 12:14) Prothrombin Time / Inr (Pt) (08/02/17 12:14) Act Partial Throm Time (Ptt) (08/02/17 12:14) Troponin I (08/02/17 12:14) Lipase (08/02/17 12:14) Chest, Single Ap (08/02/17 12:14) Ecg Monitoring (08/02/17 12:14) Bilateral Bp Monitoring (08/02/17 12:14) Iv Access Insert/Monitor (08/02/17 12:14) Oximetry (08/02/17 12:14) Oxygen Administration (08/02/17 12:14) Aspirin Chew (Aspirin Chew) (08/02/17 12:15) Nitroglycerin 2% Oint (Nitroglycerin 2% (08/02/17 12:15) Sodium Chloride 0.9% Flush (Ns Flush) (08/02/17 12:15) Admit Order (Ed Use Only) (08/02/17 14:22) Labs Laboratory Tests Test 08/02/17 12:40 White Blood Count 3.6 TH/MM3 Red Blood Count 3.87 MIL/MM3 Hemoglobin 13.8 GM/DL Hematocrit 40.3 % Mean Corpuscular Volume 104.1 FL Mean Corpuscular Hemoglobin 35.6 PG Mean Corpuscular Hemoglobin Concent 34.2 % Red Cell Distribution Width 13.1 % Platelet Count 110 TH/MM3 Mean Platelet Volume 7.7 FL Neutrophils (%) (Auto) 56.6 % Lymphocytes (%) (Auto) 25.8 % Monocytes (%) (Auto) 10.6 % Eosinophils (%) (Auto) 6.5 % Basophils (%) (Auto) 0.5 % Neutrophils # (Auto) 2.1 TH/MM3 Lymphocytes # (Auto) 0.9 TH/MM3 Monocytes # (Auto) 0.4 TH/MM3 Eosinophils # (Auto) 0.2 TH/MM3 Basophils # (Auto) 0.0 TH/MM3 CBC Comment DIFF FINAL Differential Comment Blood Urea Nitrogen 12 MG/DL Creatinine 0.77 MG/DL Random Glucose 76 MG/DL Total Protein 6.8 GM/DL Albumin 3.5 GM/DL Calcium Level 8.9 MG/DL Alkaline Phosphatase 63 U/L Aspartate Amino Transf (AST/SGOT) 13 U/L Alanine Aminotransferase (ALT/SGPT) 12 U/L Total Bilirubin 0.6 MG/DL Sodium Level 138 MEQ/L Potassium Level 4.2 MEQ/L Chloride Level 102 MEQ/L Carbon Dioxide Level 27.8 MEQ/L Anion Gap 8 MEQ/L Estimat Glomerular Filtration Rate 77 ML/MIN Total Creatine Kinase 42 U/L Troponin I LESS THAN 0.02 NG/ML B-Type Natriuretic Peptide 246 PG/ML Lipase 135 U/L MDM Medical Decision Making Medical Screen Exam Complete: Yes Emergency Medical Condition: Yes Medical Record Reviewed: Yes Interpretation(s) NSR, 61 BPM, IRBBB, NO STEMI PATTERN NOTED Differential Diagnosis NONSTEMI V STEMI V PULM EDEMA V PNA V ARRYTHMIA Narrative Course CBC NEG FOR ANEMIA, MEGALOBLASTOSIS NOTED, RELATIVELY LOW PLATELET COUNT OF 110 AND LOW WBC 3.6....HOWEVER NO LEFT SHIFT ELECTROLYTES WNL, LIVER/KIDNEY/PANCREAS WNL, NEGATIVE TROPONIN, MILDLY ELEVATED BNP CXR: DOES NOT SHOW PULM EDEMA/PNA/PTX PER RADIOLOGIST Diagnosis Primary Impression: CP R/O [place] Admitting Information Admitting Physician Requests: Observation Ruben Mary MD Aug 02, 2017 12:46
[2017-08-02 13:09] LABS: AUTOMATED NEUTROPHIL # 2.1 TH/MM3 (1.8-7.7); BASOPHIL % 0.5 % (0.0-2.0); EOSINOPHIL # 0.2 TH/MM3 (0-0.4); EOSINOPHIL % 6.5 % (0.0-4.0); HEMATOCRIT 40.3 % (35.0-46.0); HEMOGLOBIN 13.8 GM/DL (11.6-15.3); LYMPH % 25.8 % (9.0-44.0); LYMPHOCYTE # 0.9 TH/MM3 (1.0-4.8); MEAN CELL VOLUME 104.1 FL (80.0-100.0); MEAN CORPUSCULAR HEMOGLOBIN 35.6 PG (27.0-34.0); MEAN CORPUSCULAR HGB CONC 34.2 % (32.0-36.0); MEAN PLATELET VOLUME 7.7 FL (7.0-11.0); MONO % 10.6 % (0.0-8.0); MONOCYTE # 0.4 TH/MM3 (0-0.9); NEUT % 56.6 % (16.0-70.0); PLATELET COUNT 110 TH/MM3 (150-450); RED BLOOD COUNT 3.87 MIL/MM3 (4.00-5.30); RED CELL DISTRIBUTION WIDTH 13.1 % (11.6-17.2); WHITE BLOOD COUNT 3.6 TH/MM3 (4.0-11.0)
[2017-08-02 13:34] LABS: ALBUMIN 3.5 GM/DL (3.4-5.0); AST (GOT) 13 U/L (15-37); BICARBONATE 27.8 MEQ/L (21.0-32.0); BLOOD UREA NITROGEN 12 MG/DL (7-18); CALCIUM 8.9 MG/DL (8.5-10.1); CHLORIDE 102 MEQ/L (98-107); CREATININE 0.77 MG/DL (0.50-1.00); GLOMERULAR FILTRATION RATE 77 ML/MIN (>89); GLUCOSE,RANDOM 76 MG/DL (74-106); SODIUM (NA) 138 MEQ/L (136-145)
[2017-08-02 13:37] LABS: ALKALINE PHOSPHATASE 63 U/L (45-117); ALT (GPT) 12 U/L (10-53); TOTAL BILIRUBIN ADULT 0.6 MG/DL (0.2-1.0); TOTAL PROTEIN 6.8 GM/DL (6.4-8.2); TROPONIN I LESS THAN 0.02 NG/ML (0.02-0.05)
[2017-08-02] MEDS ORDERED: VITA500S3 SL (15:06)
[2017-08-02] MEDS ORDERED: LEVO88TA2 PO (15:06)
[2017-08-02] MEDS ORDERED: ACETAMINOPHEN/HYDROcodone 325 MG/7.5 MG TAB PO PRN (15:15)
[2017-08-02] MEDS ORDERED: ONDANSETRON HCL 4 MG/2 ML VIAL IV PUSH PRN (15:15)
[2017-08-02] MEDS ORDERED: ACETAMINOPHEN 500 MG CPLT PO PRN (15:15)
[2017-08-02 15:32] LABS: INTERNATIONAL NORMALIZED RATIO 1.1 RATIO; PROTHROMBIN TIME - PATIENT 10.8 SEC (9.8-11.6)
[2017-08-02 15:35] LABS: D-DIMER 0.46 MG/L FEU (0.00-0.50)
--- NOTE | 2017-08-02 15:47 | HHI.HP ---
[facility] Primary Care Physician Jerel Baltazar MD Chief Complaint CHEST PAIN History of Present Illness This is a 61 year old female that presents to the ED stating "I have not felt well for couple months." History of Kit's, hypertension, bradycardia with a pacemaker. Also complaining of developing chest discomfort this morning that she describes as a heaviness "an elephant sitting on my chest." She was short of breath with it. She states she has been short of breath with walking around inside of her house for a while and states she has been fatigued for several weeks. She had no nausea or shortness of breath with her chest discomfort this morning. Chest discomfort lasted 2 hours. Denies history of CAD. Follows Dr. Patterson cardiology and states she has an appointment here shortly and will have her pacemaker interrogated at that visit. States that some of her symptoms feel similar to when she was diagnosed with thyroid disorder. States she is due to have her thyroid tests drawn. Denies chest discomfort at this time. Denies fevers or chills recently. Patient is on hormone therapy. Denies recent travel. Denies painful or swollen lower extremities. Review of Systems General: Patient denies fevers, chills, and recent travel HEENT: Patient denies headache, sore throat, difficulty swallowing. Cardiovascular: Has the chest discomfort as mentioned above. Denies sensation of heart beating rapidly or irregularly. No syncope. Denies diaphoresis. Respiratory: She has shortness of breath with walking even inside her house short distances. Denies inspirational chest discomfort. Denies coughing wheezing or hemoptysis. GI: Patient denies nausea, vomiting, diarrhea, abdominal pain, bloody stools. Musculoskeletal: Patient denies joint pain or edema. Denies calf pain or edema. Neurovascular: Patient denies numbness, tingling, weakness in extremities. Denies headache. Endocrine: Denies polyuria and polydipsia. Hematologic: Denies easy bruising. Skin: Denies rash or itching. Past Family Social History Allergies: Coded Allergies: duloxetine (Verified Adverse Reaction, Severe, insomnia/celina, 08/02/17) Past Medical History Hypertension, bradycardia with pacemaker, Kit's, and mitral valve prolapse. Denies diabetes, hyperlipidemia, and known CAD. Past Surgical History Appendectomy, pacemaker, bladder suspension, hysterectomy, and breast augmentation. Reported Medications Reported Meds & Active Scripts Active Metoprolol Tartrate 25 Mg Tab 25 Mg PO BID Reported Levothyroxine (Levothyroxine Sodium) 88 Mcg Tab 88 Mcg PO DAILY Vitamin B-12 (Cyanocobalamin) 500 Mcg Subl 1,500 Mcg SL DAILY Premarin (Estrogens, Conjugated) 0.45 Mg Tab 0.45 Mg PO DAILY Cetirizine (Cetirizine HCl) 10 Mg Tab 10 Mg PO DAILY Alprazolam 1 Mg Tab 1 Mg PO Q6H PRN Trintellix (Vortioxetine) 10 Mg Tab 10 Mg PO DAILY Active Ordered Medications Current Medications Medications (Trade) Dose Ordered Sig/Victor M Route Start Time Stop Time Status Last Admin (NS Flush) 2 ml UNSCH PRN IVF 08/02/17 12:15 (Tylenol) 500 mg Q4H PRN PO 08/02/17 15:15 ([place] 7.5-325 Mg) 1 tab Q4H PRN PO 08/02/17 15:15 (Zofran Inj) 4 mg Q6H PRN IV PUSH 08/02/17 15:15 (Aspirin) 325 mg DAILY PO 08/03/17 09:00 (Xanax) 0.25 mg Q8H PRN PO 08/02/17 15:15 (Synthroid) 88 mcg DAILY@0600 PO 08/03/17 06:00 (Lopressor) 25 mg BID PO 08/02/17 21:00 Patient Own Medication PT OWN MED: TRINTELLIX (VORTIOXETI... DAILY PO 08/03/17 09:00 Future Hold Family History States that her father at age 52 of a myocardial infarction. Social History Lifetime non-smoker. Denies alcohol or illicit drugs. She is . Physical Exam Vital Signs Vital Signs Date Time Temp Pulse Resp B/P (MAP) Pulse Ox O2 Delivery O2 Flow Rate FiO2 08/02/17 12:51 60 21 144/68 (93) 98 Room Air 08/02/17 12:45 98 Room Air 08/02/17 12:44 60 18 168/85 (112) 98 Room Air 08/02/17 12:30 Room Air 08/02/17 10:57 98.0 68 18 156/77 (103) 97 Physical Exam GENERAL: This is a well-nourished, well-developed patient, in no apparent distress. Patient speaks in clear complete sentences. Patient is pleasant. Her is at the bedside. HEENT: Head is atraumatic and normocephalic. Neck is supple without lymphadenopathy and trachea is midline. No JVD or carotid bruits. CARDIOVASCULAR: Grade 2 systolic murmur left sternal border. Regular rate and rhythm without gallops or rubs. RESPIRATORY: Clear to auscultation. Breath sounds equal bilaterally. No wheezes , rales, or rhonchi. Chest wall is nontender. No use of accessory muscles. GASTROINTESTINAL: Abdomen is nontender, nondistended. Abdomen soft. No obvious pulsatile mass or bruit. No CVA tenderness. Strong femoral pulses bilaterally. Normal bowel sounds in all quadrants. MUSCULOSKELETAL: Patient is moving upper and lower extremities freely. No calf tenderness or edema, no Homans sign. Strong pulses in upper and lower extremities. NEUROLOGICAL: Patient is alert and oriented. Cranial nerves 2-12 are grossly intact. No focal deficits and speech is clear. SKIN: No rash and turgor is normal. Laboratory Laboratory Tests Test 08/02/17 12:40 08/02/17 14:29 White Blood Count 3.6 Red Blood Count 3.87 Hemoglobin 13.8 Hematocrit 40.3 Mean Corpuscular Volume 104.1 Mean Corpuscular Hemoglobin 35.6 Mean Corpuscular Hemoglobin Concent 34.2 Red Cell Distribution Width 13.1 Platelet Count 110 Mean Platelet Volume 7.7 Neutrophils (%) (Auto) 56.6 Lymphocytes (%) (Auto) 25.8 Monocytes (%) (Auto) 10.6 Eosinophils (%) (Auto) 6.5 Basophils (%) (Auto) 0.5 Neutrophils # (Auto) 2.1 Lymphocytes # (Auto) 0.9 Monocytes # (Auto) 0.4 Eosinophils # (Auto) 0.2 Basophils # (Auto) 0.0 CBC Comment DIFF FINAL Differential Comment Blood Urea Nitrogen 12 Creatinine 0.77 Random Glucose 76 Total Protein 6.8 Albumin 3.5 Calcium Level 8.9 Alkaline Phosphatase 63 Aspartate Amino Transf (AST/SGOT) 13 Alanine Aminotransferase (ALT/SGPT) 12 Total Bilirubin 0.6 Sodium Level 138 Potassium Level 4.2 Chloride Level 102 Carbon Dioxide Level 27.8 Anion Gap 8 Estimat Glomerular Filtration Rate 77 Total Creatine Kinase 42 Troponin I LESS THAN 0.02 B-Type Natriuretic Peptide 246 Lipase 135 Result Diagram: 08/02/17 1240 08/02/17 1240 Imaging Last 48 hours Impressions Chest X-Ray 08/02/17 1214 Signed Impressions: Service Date/Time: Wednesday, August 02, 2017 12:25 - CONCLUSION: 1. No active disease. Pacer leads as above. Cezar Wall MD Course Initial EKG has sinus rhythm without significant ST segment depressions or elevations. Caprini VTE Risk Assessment Caprini VTE Risk Assessment: No/Low Risk (score <= 1) Caprini Risk Assessment Model Point Value = 1 Point Value = 2 Point Value = 3 Point Value = 5 Age 41-60 Minor surgery BMI > 25 kg/m2 Swollen legs Varicose veins or History of unexplained or recurrent spontaneous Oral contraceptives or hormone replacement Sepsis (< 1 month) Serious lung disease, including pneumonia (< 1 month) Abnormal pulmonary function Acute myocardial infarction Congestive heart failure (< 1 month) History of inflammatory bowel disease Medical patient at bed rest Age 61-74 Arthroscopic surgery Major open surgery (> 45 min) Laparoscopic surgery (> 45 min) Malignancy Confined to bed (> 72 hours) Immobilizing plaster cast Central venous access Age >= 75 History of VTE Family history of VTE Factor V Leiden Prothrombin [id number] Lupus anticoagulant Anticardiolipin antibodies Elevated serum homocysteine Heparin-induced thrombocytopenia Other congenital or acquired thrombophilia Stroke (< 1 month) Elective arthroplasty Hip, pelvis, or leg fracture Acute spinal cord injury (< 1 month) Prophylaxis Regimen Total Risk Factor Score Risk Level Prophylaxis Regimen 0-1 Low Early ambulation 2 Moderate Order ONE of the following: *Sequential Compression Device (SCD) *Heparin 5000 units SQ BID 3-4 Higher Order ONE of the following medications: *Heparin 5000 units SQ TID *Enoxaparin/Lovenox 40 mg SQ daily (WT < 150 kg, CrCl > 30 mL/min) *Enoxaparin/Lovenox 30 mg SQ daily (WT < 150 kg, CrCl > 10-29 mL/min) *Enoxaparin/Lovenox 30 mg SQ BID (WT < 150 kg, CrCl > 30 mL/min) AND/OR *Sequential Compression Device (SCD) 5 or more Highest Order ONE of the following medications: *Heparin 5000 units SQ TID (Preferred with Epidurals) *Enoxaparin/Lovenox 40 mg SQ daily (WT < 150 kg, CrCl > 30 mL/min) *Enoxaparin/Lovenox 30 mg SQ daily (WT < 150 kg, CrCl > 10-29 mL/min) *Enoxaparin/Lovenox 30 mg SQ BID (WT < 150 kg, CrCl > 30 mL/min) AND *Sequential Compression Device (SCD) Assessment and Plan Assessment and Plan * Chest pain: Patient will continue to have serial cardiac enzymes and EKG for ruling out purposes. D-dimer is pending. Patient was seen by Dr Vinny Mayorga. Patient will have Lexiscan if she rules out. Patient will be discharged home if stress test is nonischemic with instructions to follow-up with PCP and barker peeler. Return to ED for interval issues. * Hypertension: Continue current medications. * Hypothyroidism: Resume her medication. We will repeat a TSH. Christian Casas Aug 02, 2017 15:47
[2017-08-02 17:24] LABS: TROPONIN I LESS THAN 0.02 NG/ML (0.02-0.05)
[2017-08-02] MEDS: METOPROLOL TARTRATE 25 MG TAB PO SCH (19:51)
[2017-08-02] MEDS: ALPRAZolam 0.25 MG TAB PO PRN (19:51)
[2017-08-02 20:46] LABS: TROPONIN I LESS THAN 0.02 NG/ML (0.02-0.05)
[2017-08-03 01:39] VITALS: PULSE 64
[2017-08-03 01:48] VITALS: BP 130/62; PULSE 64; RESP 17; TEMP 98.1; O2SAT 96
[2017-08-03 04:59] VITALS: BP 141/81; PULSE 64; RESP 18; TEMP 98.1; O2SAT 97
[2017-08-03] MEDS ORDERED: LEVOTHYROXINE SODIUM 88 MCG TAB PO SCH (06:00)
[2017-08-03 07:58] VITALS: BP 167/85; PULSE 68; RESP 18; TEMP 98.7; O2SAT 98
[2017-08-03] MEDS: ALPRAZolam 0.25 MG TAB PO PRN (08:50)
[2017-08-03] MEDS ORDERED: ASPIRIN 325 MG TAB PO SCH (09:00)
[2017-08-03] MEDS ORDERED: TRINTELLIX 10 MG PO SCH (09:00)
[2017-08-03] MEDS ORDERED: REGADENOSON INJ 0.4 MG/5 ML SYR ONE (09:44)
--- NOTE | 2017-08-03 11:06 | RADRPT ---
EXAM DATE/TIME: 08/03/2017 09:41 [place] COMPARISON: No previous studies available for comparison. INDICATIONS : Chest pain. Angina. DOSE: 25.8 mCi Tc99m Myoview at stress. 8.5 mCi Tc99m Myoview at rest. 0.4 mg Lexiscan STRESS SYMPTOMS: Shortness of breath, chest pressure. EJECTION FRACTION: 68% MEDICAL HISTORY : Hypertension. Hypothyroidism. SURGICAL HISTORY : Pacemaker. Appendectomy. Cholecystectomy. Partial hysterectomy, tonsillectomy. ENCOUNTER: Initial ACUITY: 1 day PAIN SCALE: 7/10 LOCATION: chest TECHNIQUE: The patient underwent pharmacologic stress with infusion of prescribed dose. Continuous ECG tracing was monitored during stress. Gated SPECT imaging was performed after stress and conventional SPECT i maging was performed at rest. The examination was performed on a SPECT/CT scanner, both attenuation and non-corrected datasets were reviewed. FINDINGS: DISTRIBUTION: The maximum perfused segment at stress is in the <mid posterior> wall. PERFUSION STUDY: The pattern of perfusion at stress is within normal limits. GATED STUDY: There is intact wall motion and thickening without hypokinetic or dyskinetic segments. CONCLUSION: Normal examination. RISK CATEGORY: Low (<1% Annual Mortality Rate) Tobi Pinto MD on August 03, 2017 at 11:05 Board Certified Radiologist. This report was verified electronically.
[2017-08-03 12:22] VITALS: BP 147/86; PULSE 62; RESP 16; TEMP 98.3; O2SAT 100
--- NOTE | 2017-08-03 12:32 | PD.CARD.PN ---
Subjective Subjective Remarks Follow-up chest pain. Patient seen and examined, sitting up in bed comfortably. Chest pain has now resolved. Patient underwent Lexiscan this morning, reportedly negative. Denies any acute complaints. Vital signs are stable. Afebrile. Objective Medications Current Medications Medications (Trade) Dose Ordered Sig/Victor M Route Start Time Stop Time Status Last Admin (NS Flush) 2 ml UNSCH PRN IVF 08/02/17 12:15 (Tylenol) 500 mg Q4H PRN PO 08/02/17 15:15 ([place] 7.5-325 Mg) 1 tab Q4H PRN PO 08/02/17 15:15 (Zofran Inj) 4 mg Q6H PRN IV PUSH 08/02/17 15:15 (Aspirin) 325 mg DAILY PO 08/03/17 09:00 08/03/17 08:50 (Xanax) 0.25 mg Q8H PRN PO 08/02/17 15:15 08/03/17 08:50 (Synthroid) 88 mcg DAILY@0600 PO 08/03/17 06:00 08/03/17 05:49 (Lopressor) 25 mg BID PO 08/02/17 21:00 08/02/17 19:51 Patient Own Medication PT OWN MED: TRINTELLIX (VORTIOXETI... DAILY PO 08/03/17 09:00 Future Hold Vital Signs / I&O Vital Signs Date Time Temp Pulse Resp B/P (MAP) Pulse Ox O2 Delivery O2 Flow Rate FiO2 08/03/17 12:22 98.3 62 16 147/86 (106) 100 08/03/17 07:58 98.7 68 18 167/85 (112) 98 08/03/17 04:59 98.1 64 18 141/81 (101) 97 08/03/17 01:48 98.1 64 17 130/62 (84) 96 08/03/17 01:39 64 08/02/17 20:20 97 08/02/17 19:30 98.1 72 17 134/64 (87) 97 08/02/17 16:32 97.9 71 20 127/65 (85) 97 08/02/17 16:01 60 17 138/66 (90) 98 Room Air 08/02/17 12:51 60 21 144/68 (93) 98 Room Air 08/02/17 12:45 98 Room Air 08/02/17 12:44 60 18 168/85 (112) 98 Room Air 08/02/17 12:30 Room Air I/O 08/02/17 08/02/17 08/02/17 08/03/17 08/03/17 08/03/17 06:59 14:59 22:59 06:59 14:59 22:59 Intake Total 300 ml Balance 300 ml Intake Oral 300 ml # Voids 2 Physical Exam GENERAL: Well-developed, well-nourished patient in NAD. SKIN: Warm and dry. No rash. HEAD: Normocephalic. Atraumatic. EYES: Pupils equal and round. No scleral icterus. No injection or drainage. ENT: No nasal bleeding or discharge. Mucous membranes pink and moist. NECK: Supple. Trachea midline. CARDIOVASCULAR: Regular rate and rhythm. S1, S2 noted. No murmur appreciated. RESPIRATORY: No accessory muscle use. Clear to auscultation. Breath sounds equal bilaterally. GASTROINTESTINAL: Abdomen soft, non-tender, nondistended. Normoactive bowel sounds x4. MUSCULOSKELETAL: No obvious deformities. Extremities without clubbing, cyanosis , or edema. NEUROLOGICAL: Awake and alert. No obvious cranial nerve deficits. Motor grossly within normal limits. 5/5 muscle strength in bilateral upper and lower extremities. Normal speech. PSYCHIATRIC: Appropriate mood and affect; insight and judgment normal. Laboratory Laboratory Tests Test 08/02/17 12:40 08/02/17 14:29 08/02/17 16:23 08/02/17 19:35 White Blood Count 3.6 TH/MM3 Red Blood Count 3.87 MIL/MM3 Hemoglobin 13.8 GM/DL Hematocrit 40.3 % Mean Corpuscular Volume 104.1 FL Mean Corpuscular Hemoglobin 35.6 PG Mean Corpuscular Hemoglobin Concent 34.2 % Red Cell Distribution Width 13.1 % Platelet Count 110 TH/MM3 Mean Platelet Volume 7.7 FL Neutrophils (%) (Auto) 56.6 % Lymphocytes (%) (Auto) 25.8 % Monocytes (%) (Auto) 10.6 % Eosinophils (%) (Auto) 6.5 % Basophils (%) (Auto) 0.5 % Neutrophils # (Auto) 2.1 TH/MM3 Lymphocytes # (Auto) 0.9 TH/MM3 Monocytes # (Auto) 0.4 TH/MM3 Eosinophils # (Auto) 0.2 TH/MM3 Basophils # (Auto) 0.0 TH/MM3 CBC Comment DIFF FINAL Differential Comment Blood Urea Nitrogen 12 MG/DL Creatinine 0.77 MG/DL Random Glucose 76 MG/DL Total Protein 6.8 GM/DL Albumin 3.5 GM/DL Calcium Level 8.9 MG/DL Alkaline Phosphatase 63 U/L Aspartate Amino Transf (AST/SGOT) 13 U/L Alanine Aminotransferase (ALT/SGPT) 12 U/L Total Bilirubin 0.6 MG/DL Sodium Level 138 MEQ/L Potassium Level 4.2 MEQ/L Chloride Level 102 MEQ/L Carbon Dioxide Level 27.8 MEQ/L Anion Gap 8 MEQ/L Estimat Glomerular Filtration Rate 77 ML/MIN Total Creatine Kinase 42 U/L 48 U/L 68 U/L Troponin I LESS THAN 0.02 NG/ML LESS THAN 0.02 NG/ML LESS THAN 0.02 NG/ML B-Type Natriuretic Peptide 246 PG/ML Lipase 135 U/L Thyroid Stimulating Hormone 3rd Gen 0.112 uIU/ML Prothrombin Time 10.8 SEC Prothromb Time International Ratio 1.1 RATIO Activated Partial Thromboplast Time 23.9 SEC D-Dimer Quantitative (PE/DVT) 0.46 MG/L FEU Imaging Last 24 hours Impressions Myocardial Perfusion Scan Nuc Med 08/03/17 0000 Signed Impressions: Service Date/Time: Saturday, August 03, 2017 09:41 - CONCLUSION: Normal examination. RISK CATEGORY: Low (<1%% Annual Mortality Rate) Tobi Pinto MD Assessment and Plan Assessment and Plan Chest pain Patient has been admitted to the chest pain center for observation. Serial EKGs and serial troponins have been ordered for ruling out ACS purposes. Serial troponins are flat. EKG reviewed showing sinus rhythm with controlled heart rate, no ST changes to indicate any ischemia. D-dimer is negative. Patient underwent Lexiscan, report reviewed showing intact wall motion and thickening without hypokinetic or dyskinetic segments. The pattern of perfusion at stress is within normal limits. Low risk category. Normal examination. Chest pain is now resolved. Patient will be discharged home with instructions to follow-up with PCP. Return to ED for interval issues. Hypertension: Continue current medications. Hypothyroidism with history of Kit's: Resume her medication. TSH 0.1. Encouraged to follow-up with PCP for adjustment in dose. Patient is stable at this time and agreeable to the plan. Rivka Marie Aug 03, 2017 12:32
--- NOTE | 2017-08-03 13:25 | HHI.DCPOC ---
Discharge Care Plan Diagnosis: (1) Hypothyroidism (2) Kit's disease (3) Chest pain (4) HTN (hypertension) (5) SVT (supraventricular tachycardia) Goals to Promote Your Health * To prevent worsening of your condition and complications * To maintain your health at the optimal level Directions to Meet Your Goals Take your medications as prescribed Follow your dietary instruction Follow activity as directed Keep your appointments as scheduled Take your immunizations and boosters as scheduled If your symptoms worsen call your PCP, if no PCP go to Urgent Care Center or Emergency Room Smoking is Dangerous to Your Health. Avoid second hand smoke Call the 24-hour hour crisis hotline for domestic abuse at Rivka Marie Aug 03, 2017 13:24
--- NOTE | 2017-08-03 13:29 | EKG ---
Date Performed: 08/02/2017 Time Performed: 19:36:27 PTAGE: 61 years EKG: Sinus rhythm POSSIBLE ANTERIOR MYOCARDIAL INFARCTION ABNORMAL ECG NO SIG CHANGE PREVIOUS TRACING : 08/02/2017 16.47 DOCTOR: Dale Mejia Interpretating Date/Time 08/03/2017 13:28:13
--- NOTE | 2017-08-03 13:30 | EKG ---
Date Performed: 08/02/2017 Time Performed: 16:47:07 PTAGE: 61 years EKG: Sinus rhythm NORMAL ECG NO CHANGE PREVIOUS TRACING : 08/02/2017 11.06 DOCTOR: Dale Mejia Interpretating Date/Time 08/03/2017 13:29:36
--- NOTE | 2017-08-03 13:35 | EKG ---
Date Performed: 08/02/2017 Time Performed: 11:06:40 PTAGE: 61 years EKG: Sinus rhythm POSSIBLY PACED ATRIAL POSSIBLE RIGHT VENTRICULAR CONDUCTION DELAY BORDERLINE ECG PREVIOUS TRACING : 11/15/2016 15.04 DOCTOR: Dale Mejia Interpretating Date/Time 08/03/2017 13:34:02
[2017-08-03] MEDS: METOPROLOL TARTRATE 25 MG TAB PO SCH (14:07)
--- NOTE | 2017-08-03 16:48 | TR ---
Date Performed: 08/03/2017 Time Performed: 10:02:27 DOCTOR: Dale Mejia DRUG LIST: CLINICAL HISTORY: ANGINA REASON FOR TEST: REASON FOR ENDING: OBSERVATION: CONCLUSION: Lexiscan stress test was performed under standard four minute protocol. Radionuclide was injected one minute prior to ending the test. No electrocardiographic abormalities were present to suggest ischemia. Nuclear imaging and interpretation are pending. COMMENTS:
== END 2017-08-03 14:57 | disposition home or self-care (01) ==
LOC: NEPD 10:47 → NEDA 14:24 → NEPGCP 16:21
PROVIDERS: ADMIT Internal Medicine Cardiovascular Disease; ATTEND Internal Medicine Cardiovascular Disease
DX: R07.89 Other chest pain (principal); I10 Essential (primary) hypertension; E06.3 Autoimmune thyroiditis; R06.02 Shortness of breath; R53.83 Other fatigue; I20.9 Angina pectoris, unspecified; I34.1 Nonrheumatic mitral (valve) prolapse; I47.1 Supraventricular tachycardia; R94.31 Abnormal electrocardiogram [ECG] [EKG]; F41.9 Anxiety disorder, unspecified; F32.9 Major depressive disorder, single episode, unspecified; M19.90 Unspecified osteoarthritis, unspecified site; Z79.899 Other long term (current) drug therapy
CPT/HCPCS: 71045; 78452; 80053; 82550; 83690; 83880; 84443; 84484; 85025; 85379; 85610; 85730; 93005; 93017; 99285; A9502; G0378; J2785